=== PATIENT | female | born 1975 | race Caucasian/White ===

== ENCOUNTER 2025-08-01 16:39 | Emergency (ER) | payer MEDICARE, SELFPAY ==
--- OUTSIDE RECORDS SUMMARY | 2024-07-21 04:03 | XMS_ITS | Continuity of Care Document ---
Author Organization [facility] Address [address] [place] [address] Phone Care Team Providers Care Money Counter Name Role Phone Gifty Sharma MD, Robles Avilez Unavailab le Allergies, Adverse Reactions, Alerts Substance Reaction Status Criticality latex Active No Information codeine Active No Information mercaptopurine Active No Informatio n infliximab Active No Information Medications Medication Instructions Dosage Effective Dates (start - stop) Status Comments Xeljanz XR 11 mg tablet,extended release take 1 tablet by oral route every day 11 MG - Active metoprolol succinate ER 50 mg tablet,extended release 24 hr take 1 tablet by oral route every day 50 MG - Active Synthroid 25 mcg tablet take 1 tablet by oral route every day 25 MCG - Active prednisone 10 mg tablet take 1 tablet by oral route every day 10 MG - Active budesonide DR-ER 9 mg tablet,delayed and extended release take 1 tablet by oral route every day in the morning swallowing whole with water. Do not break, crush, dissolve and/or chew. 9 MG - Active Xanax 0.25 mg tablet take 1 tablet by or al route 3 times every day 0.25 MG - Active levalbuterol HFA 45 mcg/actuation aerosol inhaler inhale 2 puff by inhalation route every 6 hours 90 MCG - Active Procedures Procedure Date RADEX KNChitra COMPL 4/MORE VIEWS OFFICE/OUTPATIENT VISIT NEW Advance Directives Directive Yes / No Effective Date File Name No Information Encounters Encounter Description Practice Location Reason(s) For Visit Diagnoses Date Provider Providers Copied on Encounter [facility], [address], [place], [address], [place] tel:[phone] [facility] No Information 4 Gifty Arboleda. [address], [place], [address], [place]. tel: [phone] OFFICE/OUTPA TIENT VISIT NEW [facility], [address], [place], [address], [place] tel:[phone] [facility] Pain, joint, knee, rightPatellofemor al pain syndrome of right kneeBody mass index [BMI] 45.0-49.9, adult Jul- 4 Gifty Arboleda. [address], [place], [address], [place]. tel: [phone] Referring Provider: Ellie Trinh [address] , [place], [address]. tel:[phone] Family History Family Member Type Diagnosis Age At Onset No Information Payers Payer name Insurance type Covered alliance party ID Helena hernandez(s) Medicare E2 [id number] Social History Type Description Quantity Date Captured Comments Alcohol Use Details Unknown Caffeine Use Details Unknown Tobacco Use Status No Information Smoking Status No Information Sex Female Chief Complaint And Reason For Visit No Information Reason For Referral Reason For Referral No Information Plan Of Treatment Date Type Action Status Referral Ordered: RADEX KNE 3 VIEWS RT knee ordered Referral Ordered: RADEX KNE COMPL 4/MORE VIEWS RT ordered History Of Present Illness Encounter Date Complaint History Of Prese nt Illness No Information Functional Status Date Functional Assessmen t No Information Instructions Date Instruction Additional Infor mation Giving encouragement to exercise Related to Body mass index [BMI] 45.0-49.9, adult Assessments Type Assessment Date No Information Patient Care Teams Name Effective Dates (start - stop) Status Members No Information
--- OUTSIDE RECORDS SUMMARY | 2024-07-21 04:03 | XMS_ITS | Continuity of Care Document ---
Author Organization [facility] Address [address] [place] [address] Phone Care Team Providers Care Photocomposing Machine Operator Name Role Phone Gifty Sharma MD, Robles [...] Providers Copied on Encounter [facility], [address], [place], [address], [place] tel:[phone] [facility] No Information 4 Gifty Arboleda. [address], [place], [address], [place]. tel: [phone] OFFICE/OUTPA TIENT VISIT NEW [facility], [address], [place], [address], [place] tel:[phone] [facility] Pain, joint, knee, rightPatellofemor al pain syndrome of right kneeBody mass index [BMI] 45.0-49.9, adult Jul- 4 Gifty Arboleda. [address], [place], [address], [place]. tel: [phone] Referring Provider: Ellie Trinh [address] , [place], [address]. tel:[phone] Family History Family Member Type Diagnosis Age At Onset No Information Payers Payer name Insurance type Covered democrat ID Helena hernandez(s) Medicare E2 [id number] Social History Type Description Quantity Date Captured [...]
--- NOTE | ~2025-08-01 | XR_ITS ---
EXAMINATION: XR chest 2V, 08/01/2025 17:08 [employer] HISTORY: cp COMPARISON: No comparisons available. Technique: 2 views obtained. Findings: The lungs are clear, no effusion. No pneumothorax. Heart is normal size. Mediastinal and hilar contours are within normal limits. Bony thorax no acute abnormality. Impression: No acute cardiopulmonary abnormality. Reviewed, dictated and finalized at location P. R OPERATOR [employer] Impression: No acute cardiopulmonary abnormality.
--- NOTE | 2025-08-01 16:41 | ECG_ITS ---
Test Date: 2025-08-01 17:06:20 Measurements Intervals Sebastian Rate: 71 P: 34 IN: 142 QRS: 11 QRSD: 111 T: 39 QT: 381 QTc: 415 Interpretive Statements SINUS RHYTHM WITH SINUS ARRHYTHMIA POSSIBLE LEFT ATRIAL ENLARGEMENT INCOMPLETE RIGHT BUNDLE BRANCH BLOCK BASELINE ARTIFACT- I, III BORDERLINE ECG No previous ECG available for comparison Electronically Signed On 08-01-2025 20:52:32 MANAGER CONTINUOUS IMPROVEMENT by Osmany Rojas D.O.
[2025-08-01 16:50] VITALS: BP 143/79; PULSE 73; RESP 16; TEMP 37; O2SAT 96
[2025-08-01 17:03] VITALS: BP 125/79; PULSE 80; RESP 15; O2SAT 100
[2025-08-01] MEDS: ASPIRIN 81 MG CHEWABLE TABLET 324 MG PO (17:11)
[2025-08-01 17:32] LABS: Hematocrit 38.0 % (37.0-47.0); Hemoglobin 12.7 g/dL (12.0-15.0); Immature Granulocyte Percent A 2.0 % (0-0.5); Lymphocytes Absolute Auto 1.60 K/mm3 (0.9-3.2); Mean Corpuscular HGB Conc 33.4 g/dl (32-36); Mean Corpuscular Hemoglobin 29.1 pg (26-34); Mean Corpuscular Volume 87.0 fl (80-100); Nucleated Red Blood Cells Absolute Auto 0.000 K/mm3 (0.0-0.012); Nucleated Red Blood Cells Perc 0.0 % (0.0-0.2); Platelet Count Result 396 k/mm3 (150-375); Red Blood Count 4.37 M/mm3 (4.2-5.4); White Blood Count 7.7 K/mm3 (4.5-10.0)
[2025-08-01 17:44] LABS: INR 1.0; Prothrombin Time 13.1 Seconds (11.1-14.7)
[2025-08-01 17:45] VITALS: PULSE 73
[2025-08-01 17:45] LABS: Partial Thromboplastin Time 26.8 Seconds (22.3-36.8)
[2025-08-01 17:49] LABS: Alanine Aminotransferase 22 U/L (6-35); Albumin Level 4.7 g/dL (3.5-5.1); Alkaline Phosphatase 90 U/L (38-126); Anion Gap 8 mmol/L (4-12); Aspartate Amino Transferase 37 U/L (14-36); Bilirubin,Total 0.5 mg/dL (0.2-1.3); Blood Urea Nitrogen 14 mg/dL (7-17); Calcium 9.9 mg/dL (8.4-10.2); Carbon Dioxide 27 mmol/L (22-30); Chloride 103 mmol/L (98-107); Estimated CRCL calculation 67 ml/min; Estimated Glomerular Filt Rate > 60; Glucose 92 mg/dL (65-110); Lipase 52 U/L (23-300); Potassium 4.0 mmol/L (3.4-5.0); Sodium 138 mmol/L (137-145); Total Protein 8.4 g/dL (6.3-8.2)
[2025-08-01 17:56] LABS: Troponin I < 0.012 ng/mL (0.000-0.034)
--- OUTSIDE RECORDS SUMMARY | 2025-08-01 18:11 | XMS_ITS | Clinical Summary ---
Author Organization [facility] C Address [address] [place] [address] Care Team Providers Care Floor Plan Adjuster Name Role Phone Craig Ugalde MD Unavailable [phone] Tristen Lim DO Primary Care Provider Allergies Active Allergy Reactions Criticality Noted Date Comments Azathioprine Vomiting,Nausea only,Nausea And Vomiting Low 05/19/2014 Codeine Dizziness Low Hydrocodone-Acetaminoph en Rash Medium 05/19/2014 Latex Rash Medium Metformin Diarrhea Low 11/07/2014 Nsaids (Non-Steroidal Anti-Inflammatory Drug) Other (See comments) Low 05/19/2014 Contraindicated due to Crohn's disease Medications acetaminophen (TYLENOL EXTRA STRENGTH) 500 mg tablet take 2 tablet by oral route every 6 hours as needed 0 0 06/23/20 16 Active Additional Information Patient taking differently:500 mgAs needed, Reported on 08/02/2024 diphenhydrAMINE (BENADRYL ALLERGY) 25 mg tablet take 1 tablet by oral route every 4 - 6 hours as needed 0 0 01/10/20 17 Active Additional Information Patient taking differently:25 mgNightly PRN, Reported on 08/02/2024 multivitamin with minerals tablet Take by mouth. Active Lacto.acidophilus- Bif.animalis 5 billion cell capsule, sprinkle Take 1 capsule by mouth. Active VOLTAREN 1 % gel APPLY 2 GRAMS TO AFFECTED AREA NEEDED 2 02/04/20 18 Active EPINEPHrine 0.3 mg/0.3 mL auto-injection syringeIndications :Anaphylaxis 0.3 mL (0.3 mg total) 02/02/20 18 Active levalbuterol (XOPENEX HFA) 45 mcg/actuation inhaler Inhale 1-2 puffs every 4 (four) hours as needed Active hydrocortisone (CORTENEMA) 100 mg/60 mL enemaIndications:U lcerative Colitis Insert 1 enema (100 mg total) into the rectum nightly Use as directed 1800 mL 1 01/28/20 22 Active Additional Information Patient not taking.Reported on 04/19/2025 tofacitinib (Xeljanz) 10 mg tabletIndications: Ulcerative (chronic) pancolitis without complications (HCC) Take 1 tablet (10 mg total) by mouth 2 (two) times a day 60 tablet 3 11/01/19 23 Active Additional Information Patient not taking.Reported on 04/19/2025 sulfaSALAzine (AZULFIDINE) 500 mg tablet Take 2 tablets (1,000 mg total) by mouth 2 (two) times a day 11/27/19 23 Active mesalamine (ROWASA) 4 gram/60 mL enema Insert 60 mL (4 g total) into the rectum nightly 11/27/19 23 Active ciprofloxacin (CIPRO) 500 mg tablet Take 1 tablet (500 mg total) by mouth 2 (two) times a day 14 tablet 09/11/19 24 Active Additional Information Patient not taking.Reported on 08/02/2024 traMADoL (ULTRAM) 50 mg tablet Take 1 tablet (50 mg total) by mouth every 6 (six) hours as needed for pain 24 tablet 12/30/19 24 Active Additional Information Patient not taking.Reported on 04/19/2025 cyclobenzaprine (FLEXERIL) 10 mg tablet Take 1 tablet (10 mg total) by mouth 3 (three) times a day as needed for muscle spasms 30 tablet 12/30/19 24 Active levothyroxine (SYNTHROID) 25 mcg tablet TAKE 1 TABLET BY MOUTH EVERY DAY 90 tablet 2 03/30/20 24 Active semaglutide (Wegovy) 0.25 mg/0.5 mL auto-injectorIndic ations:Fatty liver,HLA B27 (HLA B27 positive),Morbid obesity with BMI of 45.0-49.9, adult (HCC) Inject 0.5 mL (0.25 mg total) under the skin every 7 days 2 mL 5 04/25/20 24 Active Additional Information Patient not taking.Reported on 04/19/2025 fluticasone propionate (FLONASE) 50 mcg/actuation nasal spray INHALE 2 PUFFS IN EACH NOSTRIL DAILY 48 mL 2 05/30/20 24 Active Additional Information Patient not taking.Reported on 04/19/2025 metoprolol XL (TOPROL-XL) 50 mg extended release tablet TAKE 1 TABLET BY MOUTH TWICE A DAY 180 tablet 2 06/06/20 24 Active valACYclovir (VALTREX) 1 gram tablet Take 1 tablet (1,000 mg total) by mouth 3 (three) times a day 21 tablet 2 06/30/20 24 Active ondansetron ODT (ZOFRAN-ODT) 4 mg disintegrating tablet Take 1 tablet (4 mg total) by mouth every 8 (eight) hours as needed for nausea or vomiting 20 tablet 2 06/30/20 24 Active Additional Information Patient not taking.Reported on 04/19/2025 triamterene-hydroC HLOROthiazide 37.5-25 mg per tablet/capsule Take 1 tablet/capsule by mouth daily 90 tablet 3 08/30/19 25 026 Active Additional Information Patient not taking.Reported on 04/19/2025 ALPRAZolam (XANAX) 0.5 mg tabletIndications: Insomnia, unspecified type Take 1 tablet (0.5 mg total) by mouth nightly as needed for anxiety 30 tablet 12/06/19 25 Active Additional Information Patient not taking.Reported on 04/19/2025 FLUoxetine (PROzac) 20 mg capsule TAKE 1 CAPSULE BY MOUTH EVERY DAY 30 capsule 02/21/20 25 Active Additional Information Patient not taking.Reported on 04/19/2025 Rinvoq 30 mg extended release tablet Take 1 tablet (30 mg total) by mouth daily 03/02/20 25 Active hydrOXYzine (ATARAX) 25 mg tablet TAKE 1 TABLET (25 MG) BY MOUTH NIGHTLY NEEDED FOR ANXIETY OR INSOMNIA. 02/25/20 25 Active Active Problems Problem Noted Date Diagnosed Date Acute cystitis with hematuria 01/03/2023 Assessment & Plan (01/03/2023 7:56 PM CDT): UA with small blood, trace LE, positive nitrates. Urine culture pending Hx recurrent UTIs, nephrolithiasis Immunocompromised history Urine culture pending. Yeast pending Omnicef 300 mg BID x 10 days Go to the ER [facility] if you develop worsening symptoms, fever, worsening nausea, vomiting, abominal pain, flank ain, groin pain, worsening blood in urine -Take all antibiotic medications as prescribed. -We will notify you of urine culture results -Push sugar-free fluids, especially water. This also helps prevent future infections. -Urinate when you feel the urge. Do not hold your urine. Urinate as soon as you feel you have to. -Make sure to always wipe from front to back after urinating. -If you are sexually active make sure to urinate Before AND after sex to help prevent bladder infections. -Avoid intercourse until your symptoms are resolved for one week. -Do not drink alcohol, caffeine, and citrus juices. These can irritate your bladder and increase your symptoms. Seek care (go to Urgent Care or ER) immediately if: You are urinating very little or not at all. You are vomiting. You have a high fever with shaking chills. You have side or back pain that gets worse. Contact your primary care doctor or MAJOR ACCOUNT REPRESENTATIVE if: You have a fever. You have white or yellow discharge from your vagina. You do not feel better after 2 days of taking antibiotics. Tachycardia, paroxysmal 07/11/2021 Assessment & Plan (07/11/2021 1:26 PM MEDICAL SUPERVISOR): No evidence of pulmonary embolism by CT with PE protocol. Currently being evaluated and has upcoming nuclear stress test. Precordial pain 04/24/2021 Other hyperlipidemia 04/24/2021 Chronic ulcerative pancolitis, unspecified compl ication 02/01/2020 Overview (02/01/2020): Added automatically from request for surgery [id number] Assessment & Plan (12/24/2020 12:33 PM CDT): Continue Xeljanz 10 mg b.i.d. or alternatively the 22 mg once daily. She had very difficult to treat colitis which had been refractory to anti TNF medication, Entyvio, Simponi, and previously some oral steroids which she is no longer on. Continue the Xeljanz. If necessary, Stelara will be another option Immunosuppression due to drug therapy 09/28/2019 HLA B27 (HLA B27 positive) 02/01/2019 Overview (02/01/2019): HLA-B27 positive possible ankylosing spondylitis a; Comments: BKA 06/29/2016 - Dysuria 10/05/2018 Assessment & Plan (10/05/2018 4:43 PM MEDICAL SUPERVISOR): Check urinalysis and culture today. This may be altered by her recent use of azo and she may need to follow up with her primary physician. Ulcerative chronic pancolitis with rectal bleedi ng 01/04/2018 Overview (01/04/2018): Added automatically from request for surgery [id number] Assessment & Plan (07/11/2021 1:25 PM MEDICAL SUPERVISOR): Doing well at this time on Xeljanz 10 mg b.i.d.. The patient could take 22 mg once daily. She had very difficult to treat colitis which had been refractory to anti TNF medication, Entyvio, Simponi, and is currently able be off of oral steroids. If there is a problem Stelara would be the next option. GERD without esophagitis 06/23/2017 Assessment & Plan (08/21/2022 12:55 PM MEDICAL SUPERVISOR): Chronic GERD for over 10 years, currently stable on pantoprazole. -continue PPI daily -RECOMMENDATIONS given include: anti-reflux maneuvers, Avoid acidic foods like oranges and tomatoes., avoidance of spicy foods, avoid eating 3-4 hours before bed, elevation of the head of the bed, and weight loss -schedule EGD -The risks (risks of bleeding, infection, perforation requiring surgery, missed polyps/cancer, dental injury, aspiration pneumonia, anesthesia complications such as drug reaction and cardiopulmonary complications including rare chance of ), benefits, and alternatives of the planned procedure were explained to the patient who understands and consents to having procedure done. Assessment & Plan (07/11/2021 1:25 PM MEDICAL SUPERVISOR): Stable on pantoprazole Assessment & Plan (12/24/2020 12:34 PM CDT): Stable on pantoprazole. Assessment & Plan (06/23/2017 3:20 PM MEDICAL SUPERVISOR): Patient is having increased reflux symptoms recently will place her back on pantoprazole 40 mg daily perform upper endoscopy at the time of her colonoscopy. 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 Patient has been through the multiple medications as mentioned above. She has done relatively well Xeljanz 10 mg b.i.d.. She was warned about possibility of DVT. She is to continue on Xeljanz. She has some mild left- sided abdominal pain. I recommend fecal calprotectin level. If elevated then pursue further or may treat with oral budesonide. May possibly need flexible sigmoidoscopy if the fecal calprotectin remains elevated and left-sided pain persists see me again in 4 months otherwise. Assessment & Plan (02/27/2018 1:15 PM CDT): Although her colonoscopy showed marked improvement in her bowel symptoms are somewhat improved, she still is on low-dose prednisone and we need to progress to get her off of steroids. Current treatment includes Simponi, hydrocortisone enema every other day, oral budesonide 9 mg daily, prednisone 10 mg, and methotrexate 25 mg weekly. She had previous intolerance or ineffectiveness of other medications that were listed. I recommend taper prednisone down to 7.5 mg daily. I also recommend trial of using Xeljanz which has indication for ulcerative colitis as well as arthritis. We will then stop her Simponi once Xeljanz gets approved. Will continue to taper down oral prednisone and then taper down the cortisone enemas. Assessment & Plan (01/04/2018 12:49 PM CDT): Currently on Simponi, hydrocortisone enema, oral budesonide, and prednisone 15 mg. As well as methotrexate. She has previous intolerance is or ineffectiveness of other medications that are listed. Recommend complete colonoscopy at this time she is currently steroid dependent. She may need alteration her medications which showed a may be to a drug of a different class. Will compare to how she was in August this year with the severe left-sided colitis. She is to taper her prednisone down to 10 mg prior to the time of colonoscopy. Assessment & Plan (06/23/2017 3:20 PM MEDICAL SUPERVISOR): The patient is doing the best she has for several months now. It is time to perform colonoscopy to stage whether her current biologic therapy is effective. This includes Simponi, weekly methotrexate, oral budesonide, we also discussed the possibility of colectomy if needed. Will perform complete colonoscopy along with upper endoscopy. Assessment & Plan (04/01/2017 12:22 AM CDT): The disease is somewhat more like ulcerative colitis with a significant left- sided predominance of severity. She has improved significantly over recent months and seems to be responding to Simponi. I recommend continuing oral budesonide 9 mg daily. Continue the methotrexate which would also cover aspects of this presentation that may be more Crohn's like. I recommend that we taper the hydrocortisone enemas off by he tapering to every other night for 2 weeks followed by every 3rd night for 2 weeks followed by once weekly for 2 weeks and then off. She will still have some steroid on board in the form of oral budesonide, but not the systemic side effects of prednisone or hydrocortisone. I will see her again in 3 months. Left sided ulcerative colitis 10/19/2014 Assessment & Plan (08/21/2022 12:58 PM MEDICAL SUPERVISOR): Patient has ulcerative colitis diagnosed approximately 2005. Initially had pancolitis, most recent colonoscopy in [address] Nirmal Lerner with mild left-sided colitis and pseudopolyps. Patient also had a history of pyoderma gangrenosum with intermittent episodes of uveitis and a positive HLA B27 arthropathy. Patient has failed remicade, humira, entyvio, and Simponi. She has most recently been on Xeljanz with good control. -continue Xeljanz -we will order labs and fecal calprotectin -schedule colonoscopy -The risks (risks of bleeding, infection, perforation requiring surgery, missed polyps/cancer, dental injury, aspiration pneumonia, anesthesia complications such as drug reaction and cardiopulmonary complications including rare chance of ), benefits, and alternatives of the planned procedure were explained to the patient who understands and consents to having procedure done. -The patient is noted to be initiating or already taking Xeljanz and the patient was counseled on the increased risk of developing series infection that may lead hospitalization or . These infections include but are not limited to tuberculosis and invasive fungal infections as well as bacterial and viral infections. The patient was also counseled on potential malignancies, such as lymphoma or skin cancer, that can be aggressive and fatal. Assessment & Plan (02/01/2019 1:03 AM CDT): The patient has primarily left-sided disease but microscopically had medina colitis. The left-sided abdominal pain often pre dates a flare-up. The patient is having some change in her bowel movements at this time. She has done overall extremely well on Xeljanz. I recommend continuing Xeljanz. For now I will add a course of budesonide 9 mg daily . She is to follow up with me in 6-8 weeks would see if we can start tapering the budesonide at that time. Will also check a fecal calprotectin. Assessment & Plan (10/05/2018 4:42 PM MEDICAL SUPERVISOR): Patient microscopically has had a medina colitis but has predominantly had left- sided disease. She is in complete clinical remission on Xeljanz. Routine blood testing will be performed today. I will see her again in 4 months for follow-up. Ulcerative colitis 10/18/2014 Assessment & Plan (12/02/2021 2:16 PM CDT): Fairly stable on Xeljanz 10 mg b.i.d.. Continue this. She did not tolerate weaning down to 5 mg b.i.d.. Follow-up again in 4 months. If she needs anticoagulation for any cardiac ablation type procedure this is okay to do. Assessment & Plan (06/10/2020 12:53 PM CDT): Doing quite well on Xeljanz 10 mg b.i.d.. She has a mesalamine intolerance. Previous treatments included Humira, Entyvio, Simponi, budesonide, and oral steroids. Bowel movements are normal now. She has a primarily left-sided colitis but microscopically had a medina colitis in the past. She has had shingles in the past and was advised to get her shingles vaccine. She also was warned about possibility of DVT. Assessment & Plan (11/28/2019 1:36 PM CDT): Has primarily left-sided disease. Last colonoscopy January 2018 with some pseudo polyp formation of left-sided disease and mild proctitis. She is clinically had a good response to Xeljanz better than any other medication. Continue this. I would like blood work and a fecal calprotectin level prior to next visit. See me again in 4 months. Immunizations Immunization Administration Dates Next Due Influenza, Quadrivalent, Rec ombinant, Egg Free, Preservative Free, Intramuscular 04/29/2018 Influenza, Quadrivalent, Spl it, Preservative Free, Intramuscular 05/03/2019,05/31/2015,05/19/2014 Influenza, Trivalent, Cell Culture-based MDCK, Preservative Free, Antibiotic Free, Intramuscular 07/03/2017 Influenza, Unspecified 07/31/2023(Deferr ed: Patient Refused),08/08/2022(Deferred: Patient Refused),08/03/2021(Deferred: Patient Refused),07/03/2017,05/19/2014 Pneumococcal Conjugate PCV 13 12/02/2017 Pneumococcal Conjugate, Unspecified 08/17/2011 Pneumococcal Polysaccharide PPV23 08/17/2011 Tdap 07/25/2012,08/17/2011 Surgical History Surgery Date Site/Laterality Comments TONSILLECTOMY 08/17/2011 - 08/16/2012 SECTION 08/17/1997 - 08/16/1998 COLONOSCOPY 10/11/2014 Colitis continuous from rectum into transverse colon w/ more normal appearing mucosa in the proximal transverse colon. the rectum and the sigmoid had deep serpiginous ulcerations. COLONOSCOPY 10/05/2014 rotruding internal hemorrhoids were noted on retroflexion UPPER GASTROINTESTINAL ENDOSCOPY 10/05/2014 Minimal gastritis otherwise Normal COLONOSCOPY 09/29/2015 Severe left-sided colitis and polyps FLEXIBLE SIGMOIDOSCOPY 09/03/2017 Chronic active colitis, severe SKIN CANCER EXCISION 12/21/2017 basal cell cancer COLONOSCOPY 01/20/2018 3 mm adenomatous polyp in ascending colon, chronic, active, colitis insigmoid and descending colon with pseudopolyp formation, mild proctitis in rectum COLONOSCOPY 02/14/2020 Chronic inflammation, minimal, Features consistent with pseudopolyps, Focal mild lamina propria fibrosis, Negative for dysplasia or malignancy Medical History Medical History Date Comments Pancolitis Uveitis Pyoderma gangrenosum (HCC) 2010 Ulcerative colitis [employer] te sting with pattern of ulcerative coli; Comments: KRISTI 06/29/2016 - HLA B27 (HLA B27 positive) HLA-B 27 positive possible ankylosing spondylitis a; Comments: KRISTI 06/29/2016 - Anemia Chronic constipation Chronic diarrhea GERD (gastroesophageal reflux disease) Pancreatitis Hypertension Kidney stone history Urinary tract infection Arthritis Skin cancer PONV (postoperative nausea and vomiting) Small airways disease Tachycardia history==takes m etoprolol for this Family History Medical History Relation Name Comments No Known Problems Brother No Known Problems Father No Known Problems Mother No Known Problems Sister Relation Name Status Comments Brother Father Mother Sister Social History Tobacco Use Types Packs/Day Years Used Date Smoking Tobacco: Never Smokeless Tobacco: Never Tobacco Cessation:Counseling Given: Not Answered Alcohol Use Standard Drinks/Week Comments Yes 0 (1 standard drink = 0.6 oz pur e alcohol) rare AUDIT-C Answer Date Recorded Q1: How often do you have a drink containing alcohol? Never 02/27/2023 Q2: How many drinks containi ng alcohol do you have on a typical day when you are drinking? Patient does not drink Q3: How often do you have si x or more drinks on one occasion? Never 02/27/2023 PHQ-2 Answer Date Recorded PHQ-2 Total Score 0 02/25/2024 Comments No Sex and Gender Information Value Date Recorded Sex Assigned at Not on file Legal Sex Female 4:16 AM MEDICAL SUPERVISOR Gender Identity Female 08/01/2021 9:01 AM MEDICAL SUPERVISOR Sexual Orientation Straight 08/01/2021 9: 01 AM MEDICAL SUPERVISOR Last Filed Vital Signs Vital Sign Reading Time Taken Comments Blood Pressure 108/72 02/25/2024 1:54 PM CDT Pulse 77 02/25/2024 1:54 PM CDT Temperature 36.4 C (97.6 F) 02/25/2024 1:54 PM CDT Respiratory Rate 18 02/25/2024 1:54 PM CDT Oxygen Saturation 96% 02/25/2024 1:54 PM CDT Inhaled Oxygen Concentration - - Weight 126.6 kg (279 lb) 04/19/2025 11:15 AM CDT Height 157.5 cm (5' 2) 04/19/2025 11:15 AM CDT Body Mass Index 51.03 04/19/2025 11:15 AM CDT Plan of Treatment Health Maintenance Due Date Last Done Comments Cervical Cancer Screening 1975 Hepatitis C Screening 1975 Hepatitis B Screening 1991 Regular Well Visit/Exam 18-64 1991 Zoster Vaccine (1 of 2) 1992 Colon Cancer Screening-Colonoscopy 02/13/2022 02/14/2020, 02/14/2020, 01/20/2018, Additional history exists Breast Cancer Screening-Mammogram 07/04/2022 021, 02/06/2015 DTaP/Tdap/Td Vaccine (3 - Td or Tdap) 07/25/2022 07/25/2012, 08/17/2011 Pneumococcal vaccine <65 (3 of 3 - PCV20 or PCV21) 12/02/2022 12/02/2017, 08/17/2011, 08/17/2011 Depression Screening 02/24/2025 02/25/2024, 02/28/20 23 Covid-19 Vaccine ( - 2024-2 6 season) 2025 07/30/2021, 10/22/2020 Influenza Vaccine (#1) 2025 9, 04/29/2018, 07/03/2017, Additional history exists Procedures Procedure Name Priority Date/Time Associated Diagnosis Comments SCREENING MAMMOGRAM BILATERAL W DEB Schedule Routine, Read Routine (OP Routine) 07/04/2021 3:29 PM MEDICAL SUPERVISOR Screening mammogram, encounter for COLONOSCOPY 02/14/2020 6:55 AM CDT from Last 3 Months or Most Recently Relevant to Health Maintenance Results * Screening Mammogram Bilateral W Deb (07/04/2021 3:29 PM MEDICAL SUPERVISOR) Anatomical Region Laterality Modality Breast Bilateral Mammography Narrative 07/16/2021 3:21 PM MEDICAL SUPERVISOR Screening Mammogram Bilateral W Deb: 07/04/21 Clinical: Screening mammogram, encounter for. Prior Study Comparisons: Comparison was made to the prior available relevant studies at the time of interpretation. Findings: Bilateral No significant masses, malignant type calcifications, skin thickening, nipple retraction, or significant lymphadenopathy is noted in either breast. The CAD review showed no significant findings. The breasts have scattered areas of fibroglandular density. The patient will be notified of results by letter. Impression: BI-RADS ATLAS category (overall): 2 - Benign There is no mammographic evidence of malignancy. Routine Screening Mammogram in 1 Yr is recommended for bilateral Overall Assessment: 2 - Benign us Self Screening Mammogram IMG MAMMO PROCEDURES Fi nal Result * COLONOSCOPY (02/14/2020 6:55 AM CDT) Anatomical Region Laterality Modality Other Narrative Procedure Note Shad Lerner MD - 02/14/2020 6:55 AM CDT ENDOSCOPY LAB Patient Name: Nae Ramirez Procedure Date: 02/14/2020 6:55 AM Admit Type: Outpatient Room: [facility] Date of : 1975 Instrument Name: -[id number] Gender: Female Note Status: Finalized Procedure: Colonoscopy Indications: High risk colon cancer surveillance: Ulcerativepancolitis of 8 (or more) years duration, , Last colonoscopy: January 2018 , spondyloarthropathy, predominantly left sided colitis. Currently on oral xeljanz and in clinical remission but has chronic left sided abdominal pain.Has hx of paradoxical worsening of colitis with oral mesalamine. Providers: Shad Lerner M.D. Referring MD: Charla Riley, Medicines: Propofol per Anesthesia Complications: No immediate complications. Estimated Blood Loss: Estimated blood loss was minimal. Procedure: Pre-Anesthesia Assessment: - The risks and benefits of the procedure and thesedation options and risks were discussed with the patient. All questions were answered and informed consent wasobtained. The benefits, risks and alternatives of the procedureand sedation were discussed and informed consent wasobtained. All questions were answered. Please refer to the signed informed consent document in the medical record. Thescope was passed under direct vision. The Colonoscope was introduced through the anus and advanced to the the terminal ileum, with identification of the appendiceal orifice and IC valve. The colonoscopy was performed without difficulty. The patient tolerated the procedure well. The quality of the bowel preparation was good.The quality of the bowel preparation was evaluated usingthe BBPS ([place] Bowel Preparation Scale) with scores of: Right Colon = 3 (entire mucosa seen well with noresidual staining, small fragments of stool or opaque liquid), Transverse Colon = 3 (entire mucosa seen well with no residual staining, small fragments of stool or opaque liquid) and Left Colon = 3 (entire mucosa seen wellwith no residual staining, small fragments of stool oropaque liquid). The total BBPS score equals 9. The quality ofthe bowel preparation was excellent. The bowel preparation used was polyethylene glycol (PEG). Bowel prep was administered using a split dose. Findings: Scattered pseudopolyps were found in the sigmoid colon and in the descending colon. Biopsies were taken with a cold forceps forhistology. The terminal ileum appeared normal. The transverse colon and ascending colon appeared normal. Biopsieswere taken with a cold forceps for histology. Mild inflammation characterized by loss of vascularity, pseudopolypsand scarring was found in the descending colon. Biopsies were taken witha cold forceps for histology. Mild inflammation characterized by loss of vascularity, pseudopolypsand scarring was found in the sigmoid colon. Biopsies were taken with acold forceps for histology. The mucosa vascular pattern in the rectum was decreased. This was biopsied with a cold forceps for histology. The exam was otherwise without abnormality on direct and retroflexion views. Impression: - Pseudopolyps in the sigmoid colon and in thedescending colon. Biopsied. Signicifcant number of pseudopolypsand scarring from prior inflammation. This is in the regionof the patients left sided pain. - The examined portion of the ileum was normal. - The transverse colon and ascending colon are normal. Biopsied. - Mild chronic inflammation was found in the descending colon secondary to ulcerative colitis. Biopsied. - Mild chronic inflammation was found in the sigmoidcolon secondary to ulcerative colitis. Biopsied. - Decreased mucosa vascular pattern in the rectum. Biopsied. - The examination was otherwise normal on direct and retroflexion views. Surveillance biospies obtained throughout. Recommendation: - Await pathology results. - Continue present medications. - Repeat colonoscopy in 2 years for surveillance. Attending Participation: I personally performed the entire procedure. Electronically signed by Shad Lerner MD Shad Lerner M.D. 02/14/2020 8:34:25 AM This document was signed electronically. Number of Addenda: 0 Note Initiated On: 02/14/2020 6:55 AM Scope In: Scope Out: Shad Lrener MD ENDOSCOPY PROCEDURES Final Result from Last 3 Months or Most Recently Relevant to Health Maintenance Insurance MEDICARE [facility] Address: [address] [address] [place] [address] [facility] MEDICARE [place] [facility] MEDICARE MEDICAID [place] SPENDDOWN Advance Directives For more information, please contact: [phone] * Full Code (Latest Code Status on File) Date Activated Date Inactivated Comments 02/14/2020 7:08 AM 02/14/2020 1:12 PM * Full Code Date Activated Date Inactivated Comments 01/20/2018 12:20 PM 01/20/2018 4:15 PM Care Teams Floor Plan Adjuster Relationship Specialty Start Date End Date Tristen Lim DO [address] [facility] [address] [place] [address] PCP - General Internal Medicine 04/13/25 Craig Ugalde MD Consulting Physician Cardiology 06/25/21
--- OUTSIDE RECORDS SUMMARY | 2025-08-01 18:11 | XMS_ITS | Encounter Summary ---
Author Organization [facility] Address [address] [facility] [place] [address] Care Team Providers Care Career Resource Specialist Name Role Phone Eric Smith MD Unavailable Chemo Bennett MD Unavailable [phone] Shad Lerner MD Unavailable [phone] Charla Christopher DO Primary Care Provider [phone] Charla Christopher DO Unavailable [phone] Bria Nelson RUG SAMPLE BEVELER-SUPPLY AIDE Unavailable [phone] Charla Christopher DO Unavailable [phone] Bria Nelson RUG SAMPLE BEVELER-SUPPLY AIDE Unavailable [phone] Charla Christopher DO Unavailable [phone] James Delcid MD Unavailable Unavailab Willa Nice RUG SAMPLE BEVELER-SUPPLY AIDE Unavailable [phone] Willa Dorman RUG SAMPLE BEVELER-SUPPLY AIDE Unavailable [phone] Charla Christopher DO Unavailable [phone] Emperatriz Garvey RUG SAMPLE BEVELER-SUPPLY AIDE Unavailable [phone] Encounter Details Date Type Department Care Team (Late st Contact Info) Description 12/31/2016 [facility] [address] [place] [address] Eric Smith MD [address] [place] [address] Social History Tobacco Use Types Packs/Day Years Used Date Smoking Tobacco: Never Smokeless Tobacco: Never Alcohol Use Standard Drinks/Week Comments Yes 0 (1 standard drink = 0.6 oz pur e alcohol) rarely Comments No Sex and Gender Information Value Date Recorded Sex Assigned at Female 03/05/2021 9:48 AM CDT 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 Answer Date of Assessment Author No 11/16/2014 1:46 AM Lory Davenport RN * Is person blind or have serious difficulty seeing? Answer Date of Assessment Author No 11/16/2014 1:46 AM Lory Davenport RN * Does person have serious difficulty walking/climbing stairs? Answer Date of Assessment Author No 11/16/2014 1:46 AM Lory Davenport RN * Does person have difficulty dressing/bathing? Answer Date of Assessment Author No 11/16/2014 1:46 AM Lory Davenport RN * Does person have difficulty doing errands alone? Answer Date of Assessment Author No 11/16/2014 1:46 AM Lory Davenport RN documented as of this encounter Mental Status * Does person have difficulty concentrating/remembering/making decisions? Answer Entry Date Author No 11/16/2014 1:46 AM Lory Davenport RN documented in this encounter Plan of Treatment Not on file documented as of this encounter Visit Diagnoses Not on filedocumented in this encounter Additional Health Concerns Infection Onset Date Last Indicated Resolved Time COVID-19 Under Investigation 08/27/2020 08/27/2020 08/27/2020 4:24 PM SHOPPING CENTRE MANAGER COVID-19 Under Investigation 10/10/2021 10/10/2021 10/10/2021 8:54 PM SHOPPING CENTRE MANAGER documented as of this encounter Care Teams Career Resource Specialist Relationship Specialty Start Date End Date Charla Christopher, DO [address] [place] [id number] PCP - General Family Medicine 08/12/16 10/25/24 Charla Christopher, DO [address] [place] [phone] PCP - Attributed-MSSP 08/19/18 01/14/21 Bria Nelson, RUG SAMPLE BEVELER-SUPPLY AIDE [address] [place] [id number] PCP - Attributed-MSSP 01/15/21 03/16/21 Charla Christopher, DO [address] [place] [phone] PCP - Attributed-MSSP 03/17/21 04/16/21 Bria Nelson, RUG SAMPLE BEVELER-SUPPLY AIDE [address] [place] [address] PCP - Attributed-MSSP 04/17/21 10/14/21 Charla Christopher, DO [address] [place] [phone] PCP - Attributed-MSSP 10/15/21 01/01/23 James Delcid MD Provider PCP - Attributed-MSSP 02/22/17 03/17/17 Willa Dorman, RUG SAMPLE BEVELER-SUPPLY AIDE [address] [place] [phone] PCP - Attributed-MSSP 03/18/17 7 Willa Dorman, RUG SAMPLE BEVELER-SUPPLY AIDE [address] [place] [address] PCP - Attributed-MSSP 07/17/18 08/18/18 Charla Christopher DO [address] [place] [phone] PCP - Attributed-MSSP 05/28/17 8 Emperatriz Garvey RUG SAMPLE BEVELER-SUPPLY AIDE [address] [place] [phone] PCP - Attributed-MSSP 01/21/17 02/21/17 Eric Smith MD Physician Hematology 11/22/15 Chemo Bennett MD Physician Colon and Rectal Surgery 11/22/15 Shad Lerner MD Gastroenterology 06/24/16 documented as of this encounter
--- OUTSIDE RECORDS SUMMARY | 2025-08-01 18:11 | XMS_ITS | Clinical Summary ---
Author Organization [facility] [address] [place] [address] Address [facility] [place] [address] Care Team Providers Care Ambulatory Analyst Name Role Phone Tristen Lim DO Primary Care Provider [phone] Allergies Active Allergy Reactions Criticality Noted Date Comments Azathioprine Nausea and Vomiting Low 05/19/2014 Hydrocodone-Acetaminoph en Rash Low 05/19/2014 Metformin Diarrhea Low 11/07/2014 Nsaids (Non-Steroidal Anti-Inflammatory Drug) Other (See Comments) 05/19/2014 Contraindicated due to Crohn's disease Medications multivitamin (MULTIPLE VITAMIN ESSENTIAL ORAL) Take 1 Tablet by mouth daily. Active Lactobacillus acidophilus (Probiotic) 10 billion cell Capsule Take 1 Tablet by mouth daily. Active ALPRAZolam (XANAX) 1 mg tablet TAKE 1/2 TABLET BY MOUTH AT BEDTIME NEEDED INSOMNIA Active levothyroxine 25 mcg tabletIndication s:Hypothyroidism , unspecified type Take 1 Tablet (25 mcg) by mouth daily in the morning. 90 Tablet 2 5 Active hydrOXYzine HCL (ATARAX) 25 mg tabletIndication s:Insomnia, unspecified type TAKE 1 TABLET (25 MG) BY MOUTH NIGHTLY NEEDED FOR ANXIETY OR INSOMNIA. 90 Tablet 1 5 Active metoprolol succinate (TOPROL XL) 50 mg Extended Release 24 hour tablet Take 1 Tablet (50 mg) by mouth 2 times daily. 90 Tablet 3 5 Active diclofenac sodium (Voltaren) 1 % gel Apply 2 Grams to affected area 4 times daily. 100 Gram Active albuterol sulfate HFA 90 mcg/actuation aerosol inhaler Take 1 Puff by inhalation every 8 hours as needed for Shortness of Breath. 18 Gram 3 5 Active fluticasone propionate (FLONASE) 50 mcg/spray [place], Suspension nasal inhaler SPRAY 2 SPRAYS INTO EACH NOSTRIL EVERY DAY 48 mL 1 5 Active Active Problems Problem Noted Date Diagnosed Date Hyperlipidemia 12/29/2024 Ulcerative colitis with complication 12/29/2024 Inappropriate sinus tachycardia 12/29/2024 HTN (hypertension), benign 12/29/2024 Small airways disease 12/29/2024 Hypothyroidism 12/29/2024 Insomnia 12/29/2024 Hypovitaminosis D 12/29/2024 H/O herpes zoster 12/29/2024 Spondyloarthropathy 12/29/2024 HLA B27 (HLA B27 positive) 12/29/2024 Morbid obesity with BMI of 50.0-59.9, adult 12/15 Left breast mass 09/03/2021 Overview (09/03/2021): 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 Mckeon 05/19/2014 12/29/2024 Impaired fasting glucose 05/19/201408/2014 Encounters Date Type Department Care Team Description 07/04/2025 External Device Data [facility] ABSTRACTION Provider, Abstract from Last 3 Months Immunizations Immunization Administration Dates Next Due (ADACEL/BOOSTRIX)(10 YR UP) TDAP VACCINE, 0.5ML, IM 08/17/2011 INFLUENZA VACCINE QUADRIVALENT 3 YR UP PF IM 10/2013 Pneumococcal conjugate, unspecified formulation 08/17/2011 Family History Medical History Relation Name Comments Diabetes Maternal Grandfather Breast Cancer Maternal Grandmother Diabetes Maternal Grandmother Asthma Son Celiac Disease Neg Hx GERD Neg Hx Gastric Cancer Neg Hx Kidney Disease Neg Hx Liver Disease Neg Hx Pancreatic Cancer Neg Hx Rectal Cancer Neg Hx Stomach Cancer Neg Hx Ulcerative Colitis Neg Hx Ulcers Neg Hx Relation Name Status Comments Maternal Grandfather Maternal Grandmother Son Social History Tobacco Use Types Packs/Day Years Used Date Smoking Tobacco: Never Smokeless Tobacco: Never Tobacco Cessation:Counseling Given: Not Answered Alcohol Use Standard Drinks/Week Comments No 0 (1 standard drink = 0.6 oz pur e alcohol) Comments No Sex and Gender Information Value Date Recorded Sex Assigned at Not on file Legal Sex Female 8:53 AM CDT Gender Identity Not on file Sexual Orientation Not on file Occupation Industry Job Start Date Job End Date Not on file Not on file Not on file Not on file Last Filed Vital Signs Vital Sign Reading Time Taken Comments Blood Pressure 108/76 12/29/2024 2:06 PM CDT Pulse 98 12/29/2024 2:06 PM CDT Temperature 36.5 C (97.7 F) 12/29/2024 2:06 PM CDT Respiratory Rate 16 12/29/2024 2:06 PM CDT Oxygen Saturation 99% 12/29/2024 2:06 PM CDT Inhaled Oxygen Concentration - - Weight 130.2 kg (287 lb) 12/29/2024 2:06 PM CDT Height 157.5 cm (5' 2) 12/29/2024 2:06 PM CDT Body Mass Index 52.49 12/29/2024 2:06 PM CDT Plan of Treatment Health Maintenance Due Date Last Done Comments FIT/ DNA Q 3 YEARS (AUTO ORDER) 1991 FIT/FOBT Q 1 YEAR (AUTO ORDER) 1991 HEPATITIS B VACCINES (1 of 3 - 19+ 3-dose series) 1992 Traditional Medicare (ACO) A nnual Wellness Visit 1992 HPV/Cotest (21-29) 1994 HPV/Cotest (30-65) 2003 FIT-DNA Q 3 years 2018 FIT/FOBT Q 1 year 2018 Flex Sig/CT Colonography Q 5 years 2018 CERVICAL CANCER SCREENING 12/03/2018 PAP SMEAR 12/03/2018 12/04/2015, 10/17 (Previously completed) DTAP/TDAP/TD VACCINES (3 - T d or Tdap) 07/25/2022 07/25/2012, 08/17/2011 BREAST CANCER SCREENING 08/02/2022 08/02/20 21, 07/04/2021, 07/04/2021, Additional history exists ZOSTER VACCINE (1 of 2) 2023 FLEX SIG/CT COLONOGRAPHY Q 5 YEARS (AUTO ORDER) 02/13/2025 02/14/2020, 02/14/2020 INFLUENZA VACCINE (#1) 2025 9, 04/29/2018, 07/03/2017, Additional history exists COVID-19 Vaccine (3 - 2024-2 6 season) 2025 07/30/2021, 10/22/2020 Pre-Diabetes and Diabetes Screening 04/06/2028 04/06/2025 COLORECTAL CANCER SCREENING (AUTO ORDER) 11/08/2033 11/09/2023, 02/14/2020, 02/14/2020, Additional history exists COLORECTAL SCREENING 11/08/2033 11/09/2023, 02/14/2020, 02/14/2020, Additional history exists Colorectal Cancer Screening (AUTO ORDER) 11/08/2033 Colorectal Cancer Screening 11/08/2033 Procedures Procedure Name Priority Date/Time Associated Diagnosis Comments HEMOGLOBIN A1C Routine 04/06/2025 2:27 PM CDT Encounter to establish care with new doctor HTN (hypertension), benign Encounter for screening for diabetes mellitus MAMMO DIAG UNI LEFT 3D DEB W OR WO CAD Routine 08/02/2021 9:05 AM ISO COORDINATOR Unspecified lump in left breast, subareolar from Last 3 Months or Most Recently Relevant to Health Maintenance Results * HEMOGLOBIN A1C (04/06/2025 2:27 PM CDT) HEMOGLOBIN A1C 5.4 <5.7 % of total Hgb E-Duction-Aditi Starks Comment: For the purpose of screening for the presence of diabetes: <5.7% Consistent with the absence of diabetes 5.7-6.4% Consistent with increased risk for diabetes (prediabetes) > or =6.5% Consistent with diabetes This assay result is consistent with a decreased risk of diabetes. Currently, no consensus exists regarding use of hemoglobin A1c for diagnosis of diabetes in children. According to [place] Diabetes Association (ADA) guidelines, hemoglobin A1c <7.0% represents optimal control in non- diabetic patients. Different metrics may apply to specific patient populations. Standards of Medical Care in Diabetes(ADA). ESTIMATED AVERAGE GLUCOSE (MG/DL) 108 mg/dL E-DuctionAleja Starks ESTIMATED AVERAGE GLUCOSE (MMOL/L) 6.0 mmol/L E-DuctionAleja Starks Comment: FASTING:YES FASTING: YES Test Performed at: [place] [address] [address] [place] [id number] Martina-Abby Burt Vo Blood 04/06/2025 2:27 PM CDT 04/06/2025 2:29 PM CDT us Tristen Lim DO CHEMISTRY ORDERABLES Final Resu lt [facility] [phone] [place] [address] [address] [place] [id number] * (ABNORMAL) MAMMO DIAG UNI LEFT 3D DEB W OR WO CAD (08/02/2021 9:05 AM ISO COORDINATOR) Anatomical Region Laterality Modality Breast Left Mammography 08/02/2021 9:05 AM ISO COORDINATOR Impressions 08/02/2021 12:46 PM ISO COORDINATOR IMPRESSION: 1. Probably unchanged subareolar mass in the left breast corresponding to mass on chest CT. However, precise comparison is limited due to lack of tomosynthesis on the prior examination. Follow-up ultrasound is recommended in six months to ensure stability. RECOMMENDATIONS: Left breast ultrasound in six months. DICTATION LOCATION: [facility] Narrative 08/02/2021 12:46 PM ISO COORDINATOR LEFT DIGITAL DIAGNOSTIC MAMMOGRAM WITH TOMOSYNTHESIS AND CAD LEFT BREAST ULTRASOUND, LIMITED DATE: 08/02/2021 9:09 AM HISTORY: 46-year-old female with left breast lump on chest CT 06/28/2021. COMPARISON(S): Mammograms [address] 06/28/2021. BREAST COMPOSITION: There are scattered areas of fibroglandular density. FINDINGS: Mammogram views include full field CC and MLO views with tomosynthesis. A 9-10 mm mass is present in the slightly upper slightly outer subareolar left breast, corresponding to the mass seen in the left breast on CT. Targeted ultrasound of the left breast at 2:00 2 cm from the nipple demonstrates an oval hypoechoic mass with lobulated margin on one end, parallel in orientation measuring 1.1 x 1.1 x 0.5 cm. This appears most consistent with fibroadenoma. Results conveyed to the patient at the time of imaging. OVERALL FINAL ASSESSMENT: LEFT BI-RADS CATEGORY 3: PROBABLY BENIGN Procedure Note Theresa Melchor MD - 08/02/2021 LEFT DIGITAL DIAGNOSTIC MAMMOGRAM WITH TOMOSYNTHESIS AND CAD LEFT BREAST ULTRASOUND, LIMITED DATE: 08/02/2021 9:09 AM HISTORY: 46-year-old female with left breast lump on chest CT 06/28/2021. COMPARISON(S): Mammograms [address] 06/28/2021. BREAST COMPOSITION: There are scattered areas of fibroglandular density. FINDINGS: Mammogram views include full field CC and MLO views with tomosynthesis. A 9-10 mm mass is present in the slightly upper slightly outer subareolar left breast, corresponding to the mass seen in the left breast on CT. Targeted ultrasound of the left breast at 2:00 2 cm from the nipple demonstrates an oval hypoechoic mass with lobulated margin on one end, parallel in orientation measuring 1.1 x 1.1 x 0.5 cm. This appears most consistent with fibroadenoma. Results conveyed to the patient at the time of imaging. OVERALL FINAL ASSESSMENT: LEFT BI-RADS CATEGORY 3: PROBABLY BENIGN IMPRESSION: 1. Probably unchanged subareolar mass in the left breast corresponding to mass on chest CT. However, precise comparison is limited due to lack of tomosynthesis on the prior examination. Follow-up ultrasound is recommended in six months to ensure stability. RECOMMENDATIONS: Left breast ultrasound in six months. DICTATION LOCATION: [facility] us Donnie Savage MD MAMMO ORDERABLES Final Resul t from Last 3 Months or Most Recently Relevant to Health Maintenance Insurance MEDICARE PART A [place] B MEDICAID [place] Care Teams Ambulatory Analyst Relationship Specialty Start Date End Date Tristen Lim DO [address] [place] [id number] PCP - General Internal Medicine 12/29/24
--- OUTSIDE RECORDS SUMMARY | 2025-08-01 18:11 | XMS_ITS | Clinical Summary ---
Author Organization [facility] [employer] Address [address] [place] [address] Care Team Providers Care Blaster Helper Name Role Phone Eric Smith MD Unavailable Chemo Bennett MD Unavailable [phone] Shad Lerner MD Unavailable [phone] Source Comments [facility],non-owned Affiliates and Associated Physician Practices is amultiple site organization consisting of ambulatory clinics and hospital sitesin [place], [place], [place] and [place]. This disclosure is being madepursuant to the Care Everywhere program and may not contain all information available regarding this patient. Last updated 18.[facility] Allergies Active Allergy Reactions Criticality Noted Date Comments Azathioprine Dizziness,Nausea and/or Vomiting,Vomiting Low 05/19/2014 Other reaction(s): Nausea and Vomiting Codeine Rash Medium 09/07/2014 Hydrocodone-Acetaminophen Rash Low 04/13/2015 Hydrocodone-Acetaminophen Rash Medium 05/19/2014 Latex Skin Reactions Medium 11/09/2015 Water blisters, rash, skin peel Mercaptopurine Dizziness Medium 12/19/2014 Metformin Diarrhea Medium 11/07/2014 Nsaids Other Medium 04/13/2015 Contraindicated due to Crohn's disease Medications * Be aware that medications may not be up to date on this document. Alwaysverify current medications with the patient. diphenhydrAMINE (BENADRYL ALLERGY) 25 MG tablet Take 1 Tab by mouth every 6 hours as needed for Itching. 30 Tab 0 5 Active Probiotic Product (PROBIOTIC DAILY PO) Take 1 Tab by mouth once daily. Active Multiple Vitamin (MULTI VITAMIN DAILY PO) Take 1 Tab by mouth once daily Active VOLTAREN 1 % gel APPLY 2 GRAMS TO AFFECTED AREA 4 TIMES DAILY 100 g 2 9 Active traMADol (ULTRAM) 50 MG tabletIndicatio ns:Moderate to Moderately Severe Pain Take 1 (one) tablet by mouth every 6 hours as needed for Pain Acute pain of Left hip, M25.552 Reasons: Moderate to Moderately Severe Pain 24 tablet 1 Active levalbuterol (XOPENEX) 45 MCG/ACT inhaler TAKE TWO PUFFS NEBULIZED FOUR TIMES DAILY 2 Active levothyroxine (SYNTHROID) 25 MCG tablet 1 (one) tablet once daily 2 Active ergocalciferol (DRISDOL) 1.25 MG (58908 UT) capsule 1 (one) capsule Two times a week 1 Active azelastine (ASTELIN) 0.1 % nasal spray [place] 1 (one) spray into each nostril 2 times daily 30 mL 5 2 Active Tofacitinib Citrate (XELJANZ) 10 MG TABS Take by mouth every 12 hours 2 Active diphenhydramine /maalox/lidocai ne visc 1:1:1 (MAGIC MOUTHWASH) suspension Gargle and spit 5 cc every 4 hours for sore throat pain 120 mL 2 Active Additional Information Patient not taking.Reported on 10/23/2022 fluticasone propionate (Flonase) 50 MCG/ACT nasal spray [place] 2 (two) sprays into each nostril once daily 48 g 3 2 Active metoprolol succinate XL 24hr (Toprol XL) 50 MG tablet Take 1 (one) tablet by mouth 2 times daily 3 Active ALPRAZolam (Xanax) 1 MG tablet TAKE 1 TABLET BY MOUTH AT NIGHT NEEDED for insomnia 30 tablet 1 3 Active Active Problems Problem Noted Date Diagnosed Date Left breast mass 09/03/2021 Overview (10/17/2021): 1.1 cm fibroadenoma left breast Tachycardia, paroxysmal 07/11/2021 Overview (10/17/2021): Last Assessment & Plan: No evidence of pulmonary embolism by CT with PE protocol. Currently being evaluated and has upcoming nuclear stress test. Last Assessment & Plan: No evidence of pulmonary embolism by CT with PE protocol. Currently being evaluated and has upcoming nuclear stress test. Other hyperlipidemia 04/24/2021 Precordial pain 04/24/2021 Essential (hemorrhagic) thrombocythemia 04/06/20 20 1st MTP arthritis 12/16/2018 M. Obesity 06/30/2018 Overview (06/30/2018): BMI:42.52,as of 06/30/2018 Shortness of breath 06/18/2018 Pneumonia of lower lobe due to infectious organi sm 06/18/2018 Neuropathy 01/20/2018 Decreased sensation of leg 01/20/2018 Midline low back pain with sciatica 01/20/2018 Ulcerative chronic pancolitis with rectal bleedi ng 01/04/2018 Overview (10/17/2021): Added automatically from request for surgery [id number] Last Assessment & Plan: Doing well at this time on Xeljanz 10 mg b.i.d.. The patient could take 22 mg once daily. She had very difficult to treat colitis which had been refractory to anti TNF medication, Entyvio, Simponi, and is currently able be off of oral steroids. If there is a problem Stelara would be the next option. Added automatically from request for surgery [id number] Last Assessment & Plan: Doing well at this time on Xeljanz 10 mg b.i.d.. The patient could take 22 mg once daily. She had very difficult to treat colitis which had been refractory to anti TNF medication, Entyvio, Simponi, and is currently able be off of oral steroids. If there is a problem Stelara would be the next option. Kidney stones 11/22/2017 Overview (12/21/2017): Passed a stone 25 years ago. History of Crohn's (can't use NSAIDs) 11/22/17 CT in ER showed punctate left UVJ stone wth mild hydro. Normal Cr. U/a not suggestive of UTI. 12/08/17 renal Ultrasound: no hydro or stones Hip pain 06/29/2017 GERD without esophagitis 06/23/2017 Overview (10/17/2021): Last Assessment & Plan: Stable on pantoprazole Last Assessment & Plan: Stable on pantoprazole Sore throat 01/10/2017 Urination frequency 01/10/2017 Acute cystitis 12/21/2016 Eye irritation 12/02/2016 Neck pain 11/26/2016 Thoracic back pain 11/26/2016 Mood swings 10/31/2016 Overview (06/30/2018): 12/01/2017 Dr. Osvaldo WAYNE Vitamin D deficiency 10/15/2016 HLA B27 positive 11/22/2015 Ulcerative (chronic) pancolitis with other compl ication 10/16/2015 Overview (06/30/2018): 12/01/2017 Dr. Osvaldo WAYNE Inflammatory arthritis 08/27/2015 High risk medications (not anticoagulants) long- term use 08/27/2015 BMI 40.0-44.9, adult 07/11/2015 Overview (06/30/2018): BMI:42.52,as of 06/30/2018 Non morbid obesity due to excess calories 2014 Iron deficiency anemia due to chronic blood loss 03/07/2015 Resolved Problems Problem Noted Date Diagnosed Date Resolved Date Unspecified mood (affective) disorder 04/06/2020 10/17/2021 Rash 12/16/2018 01/13/2019 Inflammatory arthritis 03/30/201803/22 UTI (urinary tract infection) 01/10/2017 01/24/2017 M.obesity 10/31/2016 11/30/2017 Ulcerative colitis, unspecif ied with other complication 05/28/2016 10/31/2016 Ulcerative colitis 04/12/2015 6 Overview (05/17/2015): Dr. 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 Riley Immunizations Immunization Administration Dates Next Due COVID TRAY PRIMARY 18+YR 10/22/2020 Covid Moderna primary monova lent 12+ yr 0.5mL 07/30/2021 INFLUENZA VACCINE 07/03/2017,05/19/2014 INFLUENZA VACCINE, CELL CULT URE, QUADR. (FLUCELVAX QUADRIVALENT; 6MO+) (CCIIV4) 07/03/2017 INFLUENZA VACCINE, QUADR. (F LUZONE; FLULAVAL; FLUARIX; AFLURIA QUADRIVALENT; 6MO+), 0.5 ML (IIV4) 05/03/2019,05/31/2015,05/19/2014 PNEUMOCOCCAL PPSV23 08/17/2011 Pneumococcal Pcv13 Conj 12/02/2017 TDAP (7yrs+) 07/25/2012,08/17/2011 iNFLUENZA VACCINE, RECOM-DAO, QUADR. (FLUBLOCK QUADRIVALENT; 18Y+) (RIV4) 04/29/2018 Family History Medical History Relation Name Comments Arthritis - Osteo Maternal Grandfather Diabetes Maternal Grandfather Rashes/Skin Problems Maternal Grandfather Stroke Maternal Grandfather Cancer Maternal Grandmother Cancer - Breast Maternal Grandmother Diabetes Maternal Grandmother Arthritis - Osteo Mother Hypertension Mother Diabetes Paternal Grandfather Hypertension Paternal Grandfather Relation Name Status Comments Maternal Grandfather Maternal Grandmother Mother Paternal Grandfather Social History Tobacco Use Types Packs/Day Years Used Date Smoking Tobacco: Never Smokeless Tobacco: Never Tobacco Cessation:Counseling Given: Not Answered Alcohol Use Standard Drinks/Week Comments No 0 (1 standard drink = 0.6 oz pur e alcohol) rarely AUDIT-C Answer Date Recorded Q1: How often do you have a drink containing alc ohol? Never 10/10/2021 Average Number of Drinks Not on file 022 Frequency of Binge Drinking Not on file 09/18 PHQ-2 Answer Date Recorded PHQ2 TOTAL SCORE 0 11/06/2022 Comments No Sex and Gender Information Value Date Recorded Sex Assigned at Female 03/05/2021 9:48 AM CDT Legal Sex Female 7:32 PM [employer] Gender Identity Female 03/05/2021 9:48 AM CDT Sexual Orientation Straight 03/05/2021 9: 48 AM CDT Occupation Industry Job Start Date Job End Date Disability Not on file Not on file Not on file Last Filed Vital Signs Vital Sign Reading Time Taken Comments Blood Pressure 112/68 11/06/2022 2:46 PM CDT Pulse 86 11/06/2022 2:46 PM CDT Temperature 35.9 C (96.6 F) 10/23/2022 8:00 AM [employer] Respiratory Rate 20 10/23/2022 8:00 AM [employer] Oxygen Saturation 98% 11/06/2022 2:46 PM CDT Inhaled Oxygen Concentration - - Weight 117.3 kg (258 lb 9.6 oz) 11/06/2022 2:46 PM CDT Height 157.5 cm (5' 2) 11/06/2022 2:46 PM CDT Body Mass Index 47.3 11/06/2022 2:46 PM CDT Plan of Treatment Health Maintenance Due Date Last Done Comments COLOGUARD (AGES 45-75) - COLON CA SCREENING 1973 CT COLONOGRAPHY - COLON CA SCREENING 1973 FIT - COLON CA SCREENING 1973 FLEX SIG - COLON CA SCREENING 1973 HIV SCREENING 1988 DTAP/TDAP/TD VACCINES (3 - Td or Tdap) 07/25/2022 07/25/2012, 08/17/2011 PAP SMEAR 03/26/2023 03/26/2020 (Done Outside Per Patient), 12/04/2015, 05/26/2014 PNEUMOCOCCAL VACCINE 50+ (3 of 3 - PCV20 or PCV21) 2023 12/02/2017, 08/17/2011 ZOSTER VACCINE (1 of 2) 2023 MAMMOGRAM 08/02/2023 08/02/2021, 06/17, 07/04/2021, Additional history exists MEDICARE AWV 12 MONTHS 11/07/2023 11/06/2022, 11/06/2022, 10/17/2021, Additional history exists DEPRESSION SCREENING 08/17/2024 11/06/2022, 10/23/2022, 02/24/2022, Additional history exists SCREENING FOR DIABETES 10/10/2024 , 03/17/2021, 02/15/2021, Additional history exists COVID-19 VACCINE ( season) 2025 07/30/2021, 10/22/2020 INFLUENZA VACCINE (#1) 2025 9, 04/29/2018, 07/03/2017, Additional history exists LIPID TESTING 02/15/2026 02/15/2021, 05/18, 02/06/2015 COLON MONITORING 02/13/2030 02/14/2020, , 01/20/2018, Additional history exists COLONOSCOPY - COLON CA SCREENING 02/13/2030 02/14/2020, 02/14/2020, 01/20/2018, Additional history exists Colorectal Cancer Screening 02/13/2030 HEPATITIS C SCREENING Completed 05/11/2018 , 06/29/2015, 06/29/2015 HEPATITIS B VACCINE Discontinued HIB VACCINE Aged Out No longer eligi ble based on patient's age to complete this topic HPV VACCINE Aged Out No longer eligi ble based on patient's age to complete this topic MENINGOCOCCAL (Group B) VACCINE SHARED DECISION-MAKING Aged Out No longer eligible based on patient's age to complete this topic MENINGOCOCCAL GROUPS A/C/Y/W VACCINE Aged Out No longer eligible based on patient's age to complete this topic Goals Goal Patient Goal Type Associated Problems Recent Progress Patient-Stated? Author Patient Stated Goal: General On track( 018 2:00 PM [employer]) Yes Yuli Jett RN Note: Lalit will call the doctor if: he/she has an increased temperature (greater than 101), unrelieved pain, symptoms that are not relieved or worsening, and side effects of medications. Progress toward goal attainment: 0% : Ongoing / No progress Barriers to goal attainment: None identified at this time. Yearly PCP visit Lifestyle No WhiteHalie A Have labs drawn Lifestyle No White, Halie A Take recommended medication(s) Lifestyle No White, Halie A Use safety retraint in car Lifestyle No WhiteHalie A Complete Health Maintenance Screenings Lifestyle No WhiteHalie A Procedures Procedure Name Priority Date/Time Associated Diagnosis Comments COMPREHENSIVE METABOLIC PANEL STAT 10/10/2021 8:09 PM [employer] MAMMOGRAM 07/04/2021 LIPID PROFILE Routine 02/15/2021 11:12 AM CDT Hyperlipidemia, unspecified hyperlipidemia type ENDOSCOPY, COLON, SCREENING Routine 02/14/2020 HEPATITIS SCREEN ACUTE Routine 05/11/2018 3:32 PM CDT Fatigue, unspecified type PAP IG LB RFLX HPV HR ALL Routine 12/04/2015 3:19 PM CDT Cervical cancer screening from Last 3 Months or Most Recently Relevant to Health Maintenance Results * (ABNORMAL) COMPREHENSIVE METABOLIC PANEL (10/10/2021 8:09 PM [employer]) Glucose 117(H) 70 - 105 mg/dL 10/10/2021 8:32 PM [facility] [employer] Sodium 139 136 - 145 mmol/L 10/10/2021 8:32 PM [employer] [facility] Potassium 3.4(L) 3.5 - 5.1 mmol/L 10/10/2021 8:32 PM [employer] [facility] Chloride 104 98 - 107 mmol/L 10/10/2021 8:32 PM [facility] [employer] CO2 22(L) 23 - 31 mmol/L 10/10/2021 8:[address] [facility] Calcium 9.9 8.4 - 10.4 mg/dL 10/10/2021 8:[address] [facility] Anion Gap 13 8 - 18 mmol/L 10/10/2021 8:[address] [facility] BUN 13 7 - 18.7 mg/dL 10/10/2021 8:[address] [facility] Creatinine 0.94 0.57 - 1.11 mg/dL 10/10/2021 8:[address] [facility] Alkaline Phosphatase 55 40 - 150 U/L 10/10/2021 8:[address] [facility] ALT 21 0 - 61 U/L 10/10/2021 8:[address] [facility] AST 21 5 - 34 U/L 10/10/2021 8:[address] [facility] Protein Total 7.8 6.4 - 8.3 gm/dL 10/10/2021 8:[address] [facility] Albumin 4.5 3.5 - 5.2 gm/dL 10/10/2021 8:[address] [facility] Bilirubin Total 0.3 0.2 - 1.2 mg/dL 10/10/2021 8:[address] [facility] eGFR by MDRD >60 >60 mL/min/1.7 3m2 10/10/2021 8:[address] [facility] eGFR by MDRD >60 >60 mL/min/1.7 3m2 10/10/2021 8:[address] [facility] Blood BLOOD SPECIMEN / Unknown Venipuncture / Unknown 10/10/2021 8:09 PM [employer] 10/10/2021 8:13 PM [facility] us Ita Benson [employer] MANAGER LAB - CHEMISTRY ORD ERABLES Final Result [facility] [address] [place] [id number] * MAMMOGRAM (07/04/2021) Anatomical Region Laterality Modality Other 07/04/2021 Narrative 07/04/2021 Ordered by an unspecified provider. us Scanned Document SCANNING ONLY Final Result * (ABNORMAL) LIPID PROFILE (02/15/2021 11:12 AM CDT) Cholesterol 240(H) 100 - 199 mg/dL [facility] INSURANCE BILL Triglycerides 200(H) 0 - 149 mg/dL [facility] INSURANCE BILL HDL Cholesterol 59 >39 mg/dL [facility] INSURANCE BILL VLDL Calculated 36 5 - 40 mg/dL [facility] INSURANCE BILL LDL Calculated 145(H) 0 - 99 mg/dL [facility] INSURANCE BILL Comment NOT NEEDED [facility] INSURANCE BILL Comment: FASTING Ancillary determined the test is not needed. Blood BLOOD SPECIMEN / Unknown 02/15/2021 11:12 AM CDT 02/15/2021 Narrative Resulting Agency Comment Lab Testing performed at: [facility] [address] [phone] Bria Nelson [employer] MANAGER LAB - CHEMISTRY ORDER PATRICIA Final Result [facility] INSURANCE BILL [address] [place] [address] * ENDOSCOPY, COLON, SCREENING (02/14/2020) us Provider Unknown GI PROCEDURE ORDERABLES Final R esult * HEPATITIS SCREEN ACUTE (05/11/2018 3:32 PM CDT) Hepatitis A Virus Antibody IgM Non Reactive Non Reactive [facility] INSURANCE BILL Hepatitis B Virus Surface Antigen Non Reactive Non Reactive [facility] INSURANCE BILL Hepatitis B Core Virus Antibody IgM Non Reactive Non Reactive [facility] INSURANCE BILL Hepatitis C Antibody Non Reactive Non Reactive [facility] INSURANCE BILL Comment: Non Reactive - Antibodies to Hepatitis C virus (HCV) were no t detected, result does not exclude early acute HCV infection. Non Reactive - Antibodies to Hepatitis C virus (HCV) were no t detected, result does not exclude early acute HCV infection. Blood BLOOD SPECIMEN / Unknown 05/11/2018 3:32 PM CDT 05/11/2018 Narrative Resulting Agency Comment [facility] [address] [place] [phone] us Reanna Vernon MD LAB - CHEMISTRY ORDERABLES Final Result [facility] INSURANCE BILL [address] [place] [address] * PAP IG REFLX HPV ALL PTH (PO REF LAB) (12/04/2015 3:19 PM CDT) Diagnosis [facility] INSURANCE BILL Comment:NEGATIVE FOR INTRAEP ITHELIAL LESION AND MALIGNANCY. Specimen Adequacy [facility] INSURANCE BILL Comment:Satisfactory for carley luation. Clinician Provided ICD10 [facility] INSURANCE BILL Comment: D25.9 Z12.4 Performed by [employer] INSURANCE BILL Comment:Joshua Alicea totechnologist (ASCP) Comment . [facility] INSURANCE BILL Note [facility] INSURANCE BILL Comment: The Pap smear is a screening test designed to aid in the detection of premalignant and malignant conditions of the uterine cervix. It is not a diagnostic procedure and should not be used as the sole means of detecting cervical cancer. Both false-positive and false-negative reports do occur. . [employer] CPT Code Automation [facility] INSURANCE BILL Comment: This liquid based ThinPrep(R) pap test was screened with the use of an image guided system. Note [employer] INSURANCE BILL Comment: The HPV DNA reflex criteria were not met with this specimen result therefore, no HPV testing was performed. . Miscellaneous samples (specimen) ENTIRE ENDOCERVIX / Unknown 12/04/2015 3:19 PM CDT 12/05/2015 2:30 AM CDT Narrative [facility] INSURANCE BILL - 12/06/2015 9:29 AM CDT No. of containers..01 CYTYC Thin Prep Vial Resulting Agency Comment [address] [phone] us Olga Beckett MD LAB - PATHOLOGY/CYTOLOGY ORDERAB LES Final Result Performing Organization Address City/[facility]/ZIP Co de Phone Number [facility] INSURANCE BILL [address] [place] [address] from Last 3 Months or Most Recently Relevant to Health Maintenance Insurance [place]IC[place] BENEFIT [facility] MEDICARE MEDICAID [place] BENEFIT - [facility] Advance Directives * Full Code (Latest Code Status on File) Date Activated Date Inactivated Comments 06/18/2018 10:16 PM 06/21/2018 12:17 PM * Full Code Date Activated Date Inactivated Comments 11/22/2017 6:48 PM 11/23/2017 11:01 AM * Full Code Date Activated Date Inactivated Comments 11/16/2014 1:25 AM 11/22/2014 3:17 PM Care Teams Blaster Helper Relationship Specialty Start Date End Date Eric Smith MD Physician Hematology 11/22/15 Chemo Bennett MD Physician Colon and Rectal Surgery 11/22/15 Shad Lerner MD Gastroenterology 06/24/16
--- OUTSIDE RECORDS SUMMARY | 2025-08-01 18:12 | XMS_ITS | Data Portability ---
Author Organization [employer] , [facility]_[employer] Address [address] [place] [address] Assessment Encounter Date Assessment Date Assessment LastModified by Organization Details LastModified Time 04/03/2025 04/03/2025 49-year-old female with a history of uterine leiomyoma presenting with heavy menstrual bleeding. The fibroids have been present for approximately ten years, initially asymptomatic, but have recently caused significant bleeding, leading to anemia and the need for potential surgical intervention Not available 04/03/2025 17:16:19 04/04/2025 04/04/2025 49-year-old female with a history of uterine leiomyoma presenting with heavy menstrual bleeding. The fibroids have been present for approximately ten years, initially asymptomatic, but have recently caused significant bleeding, leading to anemia and the need for potential surgical intervention Not available 04/03/2025 19:45:48 Plan of Treatment Reminders Order Date Submit Date Provider Last Modified By Organization Details Last Modified Time Details Appointments None recorded. Lab CBC w/ auto diff 2024 025 Titans[employer] Rodanthe Sherif, [address] [place], [address], 5 11:31:32 ferritin, serum or plasma 2024 025 [employer] [facility], [address] [facility], [place], [address], 06:58:20 Referral None recorded. Procedures None recorded. Surgeries None recorded. Imaging US, transvagina l 2024 025 [email or web address] Not available 15:56:32 Medication Orders None recorded. Patient TargetsNo targets recorded. Patient Instructions Encounter Date Encounter Id Patient Instructions Last Modified By Organization Details Last Modified Time 04/03/2025 [id number] - Schedule an ultrasound and endometrial biopsy to evaluate fibroids. - Follow up with a spool tender for ulcerative colitis management. - Monitor hemoglobin levels and consider iron infusions if necessary. - Follow up with a tape sewing machine operator for anemia management. - Continue routine monitoring of the benign breast nodule. [email or web address] Not available 04/03/2025 16:14:52 Reason for Referral None Reported. Results Created Date Observation Date Name Description Value Unit Range Abnormal Flag Note LastModifiedBy Organization Detail LastModifiedTime 04/05/2004/05/2025 CBC (INCL UDES DIFF/ PLT) WBC 10.0 thous and/u L 4.0 - 9.8 high [place], [address], 04/05/2025 11:31:32 04/05/20 25 04/05/2025 CBC (INCL UDES DIFF/ PLT) RBC 4.6 mitch on/uL 3.9 - 4.9 normal [place], [address], 04/05/2025 11:31:32 04/05/20 25 04/05/2025 CBC (INCL UDES DIFF/ PLT) hemoglobin 13.8 g/dL 11.8 - 14.8 normal [place], [address], 04/05/2025 11:31:32 04/05/20 25 04/05/2025 CBC (INCL UDES DIFF/ PLT) hematocrit 41.4 % 35.5 - 44.0 normal [place], [address], 04/05/2025 11:31:32 04/05/20 25 04/05/2025 CBC (INCL UDES DIFF/ PLT) MCV 90.8 fL 82.0 - 99.0 normal [place], [address], 04/05/2025 11:31:32 04/05/20 25 04/05/2025 CBC (INCL UDES DIFF/ PLT) MCH 30.3 pg 27.2 - 32.6 normal Not Available [address], [address], 04/05/2025 11:31:32 04/05/20 25 04/05/2025 CBC (INCL UDES DIFF/ PLT) MCHC 33.3 g/dL 31.5 - 35.5 normal Not Available [address], [address], 04/05/2025 11:31:32 04/05/20 25 04/05/2025 CBC (INCL UDES DIFF/ PLT) RDW-CV 14.4 % 11.5 - 14.5 normal Not Available [address], [address], 04/05/2025 11:31:32 04/05/20 25 04/05/2025 CBC (INCL UDES DIFF/ PLT) platelet 124 thous and/u L 140 - 350 low COMME NT: PLT = Micro scopi c plate let clump s prese nt on smear revie w. Plate let count may be sligh tly highe r than indic ated. Not Available [address], [address], 04/05/2025 11:31:32 04/05/20 25 04/05/2025 CBC (INCL UDES DIFF/ PLT) MPV 12.2 fL 9.3 - 12.4 normal Not Available [address], [address], 04/05/2025 11:31:32 04/05/20 25 04/05/2025 CBC (INCL UDES DIFF/ PLT) absolute neutrophil 6.55 thous and/u L 1.90 - 7.00 normal Not Available [address], [address], 04/05/2025 11:31:32 04/05/20 25 04/05/2025 CBC (INCL UDES DIFF/ PLT) absolute lymphocyte 2.02 thous and/u L 0.70 - 4.50 normal Not Available [address], [address], 04/05/2025 11:31:32 04/05/20 25 04/05/2025 CBC (INCL UDES DIFF/ PLT) absolute monocyte 0.91 thous and/u L 0.10 - 1.30 normal Not Available [address], [address], 04/05/2025 11:31:32 04/05/20 25 04/05/2025 CBC (INCL UDES DIFF/ PLT) absolute eosinophil 0.18 thous and/u L <0.70 normal Not Available [address], [address], 04/05/2025 11:31:32 04/05/20 25 04/05/2025 CBC (INCL UDES DIFF/ PLT) absolute basophil 0.12 thous and/u L <0.20 normal Not Available [address], [address], 04/05/2025 11:31:32 04/05/20 25 04/05/2025 CBC (INCL UDES DIFF/ PLT) absolute immature granulocyte 0.22 thous and/u L <0.03 high Not Available [address], [address], 04/05/2025 11:31:32 04/03/20 25 04/04/2025 JEREMY TIN ferritin 22 NG/mL 16-232 normal Not Available [facility] [address] , [place], [address], 04/04/2025 06:58:20 04/04/20 25 04/04/2025 US, trans vagin al No observ ation record ed. [email or web address] Collette [address], [place], [address], 04/04/2025 14:47:16 Result Notes None recorded. Procedures Surgical History Date Name Laterality Status Provider Name and Address Organization Details Recorded Time 11/16/19 24 Date of Last Colonoscopy completed [facility] 04/03/2025 15:47:43 10/16/19 21 Most Recent Mammogram completed [facility] 04/03/2025 15:43:37 08/17/19 20 Date of Last Pap Smear completed [facility] 04/03/2025 15:43:37 08/17/19 19 D & C completed [facility] 04/03/2025 15:49:03 08/17/19 16 Most Recent Bone Density completed [facility] 04/03/2025 15:43:[address] [facility] 04/03/2025 15:43:37 tonsillectomy completed Rin [facility] 04/04/2025 13:16:00 Imaging Results None recorded. Procedure Notes None recorded. Medical Equipment None Reported. Allergies Allergen ID Allergen Name Allergen Category Reaction Reaction Severity Criticality Documentation Date Start Date Code Code System Note Provider Name and Address Organization Details Recorded Time 236807 codeine medicatio n Not available Not available Not available 04/03/2025 2670 RxNorm Lisa Chau [facility] 15:43:37 831002 hydrocodo ne Not available Not available Not available Not available 04/03/2025 5489 RxNorm Lisa Chau [facility] 15:43:37 272328 albuterol medicatio n Not available Not available Not available 04/03/2025 435 RxNorm Lisa Chau [facility], [facility] [employer] [facility] IV 15:43:37 896520 house dust allergeni c extract environme nt,medica tion Not available Not available Not available 04/03/2025 03869 9 RxNorm Lisa Chau [facility] [employer] [facility] IV 15:43:37 196286 Canis lupus familiari s extract environme nt Not available Not available Not available 04/03/2025 63913 4 [facility] 15:43:37 167728 mold extract environme nt Not available Not available Not available 04/03/2025 94020 8 [facility] 15:43:37 731221 cigarette smoke environme nt Not available Not available Not available 04/03/2025 [facility] 15:43:37 Medications Name Sig Start Date Stop Date Status Note LastModified by Organization Details LastModified Time prednisone 10 mg tablet TAKE 4 TABLETS BY MOUTH DAILY 04/03 completed Not Available Not Available Not Available Toprol XL 100 mg tablet,exte nded release Take 1 tablet every day by oral route. active Not Available Not Available No t Available alprazolam 1 mg tablet TAKE 1/2 TABLET BY MOUTH AT BEDTIME NEEDED INSOMNIA active Not Available Not Available No t Available metoprolol succinate ER 50 mg tablet,exte nded release 24 hr TAKE 1 TABLET BY MOUTH TWICE A DAY 04/04 completed Not Available Not Available Not Available valacyclovi r 1 gram tablet TAKE 1 TABLET BY MOUTH THREE TIMES A DAY 04/03 completed Not Available Not Available Not Available tramadol 50 mg tablet TAKE 1-2 TABLETS BY MOUTH EVERY 6 HOURS NEEDED FOR MODERATE PAIN (ABDOMINA L PAIN). active Not Available Not Available No t Available levothyroxi ne 25 mcg tablet TAKE 1 TABLET (25 MCG) BY MOUTH DAILY IN THE MORNING active Not Available Not Available No t Available dexamethaso ne 0.5 mg/5 mL oral elixir TAKE 5 ML BY MOUTH THREE TIMES DAILY. SWISH AND SPIT active Not Available Not Available No t Available alprazolam 0.5 mg tablet TAKE 1 TABLET BY MOUTH NIGHTLY NEEDED FOR ANXIETY 04/03 completed Not Available Not Available Not Available hydrocortis one 100 mg/60 mL enema UNWRAP AND INSERT 60 ML INTO THE RECTUM EVERY NIGHT AT BEDTIME. active Not Available Not Available No t Available triamterene 37.5 mg-hydrochl orothiazide 25 mg tablet TAKE 1 TABLET BY MOUTH EVERY DAY 04/03 completed Not Available Not Available Not Available hydroxyzine HCl 25 mg tablet TAKE 1 TABLET (25 MG) BY MOUTH NIGHTLY NEEDED FOR ANXIETY OR INSOMNIA. active Not Available Not Available No t Available methylpredn isolone 4 mg tablets in a dose pack TAKE 6 TABLETS ON DAY 1 DIRECTED ON PACKAGE AND DECREASE BY 1 TAB EACH DAY FOR A TOTAL OF 6 DAYS 04/03 completed Not Available Not Available Not Available ondansetron 4 mg disintegrat ing tablet TAKE 1 TABLET BY MOUTH EVERY 8 HOURS NEEDED FOR NAUSEA AND VOMITING 04/03 completed Not Available Not Available Not Available fluoxetine 20 mg capsule TAKE 1 CAPSULE BY MOUTH EVERY DAY active Not Available Not Available No t Available fluticasone propionate 50 mcg/actuati on nasal spray,suspe nsion SPRAY 2 SPRAYS INTO BOTH NOSTRILS ONCE A DAY active Not Available Not Available No t Available budesonide DR-ER 9 mg tablet,sonja yed and extended release TAKE 1 TABLET BY MOUTH DAILY. SWALLOW WHOLE DO NOT CRUSH OR CHEW TABLET. AVOID GRAPEFRUI T JUICE. active Not Available Not Available No t Available Rinvoq 30 mg tablet,exte nded release Take 1 tablet every day by oral route. active Not Available Not Available No t Available Vitals Date Recorded Body height Body mass index (BMI) Body weight Systolic And Diastolic Provider Name and Address Organization Details Last Updated DateTime 04/03/2025 157.48 cm 51.8 kg/m2 246671.36 g 126/78 mm[Hg] Lisa Chau [facility] [employer] [facility] 04/03/2025 15:55:12 Date Recorded Body height Body mass index (BMI) Body weight Systolic And Diastolic Provider Name and Address Organization Details Last Updated DateTime 04/04/2025 157.48 cm 51.7 kg/m2 503050.92 g 122/80 mm[Hg] Rin Chau [place] [employer] [facility] 04/04/2025 13:14:38 Social History Question Answer Notes LastModified by Organizat ion Details LastModified Time Tobacco Smoking Status Never Smoker Lisa Chau [facility] [place] [facility] [employer] IV 04/03/2025 15:43:37 If You Are , What Was Your Level Of Alcohol Consumption Prior To ? None [place] [id number] Information not available 04/03/2025 Are You Blind Or Do You Have Difficulty Seeing? No [place] [address] Information not available 04/03/2025 Are You Deaf Or Do You Have Serious Difficulty Hearing? No Information not available 04/03/2025 What Type Of Diet Are You Following? CARBOHYDRATE [email or web address] Information not available 04/03/2025 How Many Children Do You Have? 1 [email or web address] Information not available 04/03/2025 What Is Your Relationship Status? Information not available 04/03/2025 Are You Sexually Active? Yes [email or web address] Information not available 04/03/2025 Sex: Unknown Functional Status Question Answer Note LastModified by Organizat ion Details LastModified Time Do you use any illicit or recreational drugs? No [email or web address] Information not available 04/03/2025 What is your level of alcohol consumption? Occasional [email or web address] Information not available 04/03/2025 Are you currently employed? No [email or web address] Information not available 04/03/2025 What is your exercise level? Occasional [email or web address] Information not available 04/03/2025 Mental Status None recorded. Family History Relationship Description Onset Age of this Age Resolved Age Notes LastModified by Organization Details LastModified Time Maternal Grandmother Malignant neoplasm of breast [place] [id number] Not available 04/03 15:48:31 Medical History Condition Response Other Cancer N High Blood Pressure Y Colon Cancer N Cytomegalovirus N Hyperthyroidism N MRSA N Blood Transfusion N Herpes (HSV) N Breast Cancer N Lung Cancer N Hypothyroidism Y Depression N Incontinence N Panic Attacks N Neurological Disorder N Deep Vein Thrombosis N Anxiety Disorder Y Autoimmune disease N Arthritis N Shingles N Tuberculosis/Positive PPD N Infertility N Polycystic Ovarian Syndrome N Cervical Cancer N Chlamydia N Hematuria N Stroke N Varicosities N Seasonal allergies N Crohn's Disease N Alzheimer's/Dementia N COPD/Emphysema N Endometriosis N HPV/Genital Warts N IBS (Irritable Bowel Syndrome) N History of Abnormal Pap N High Cholesterol N Liver Disease N Kidney Infection N Fibromyalgia N Ulcer N Kidney Disease N HIV N Gallbladder disease N Von Willebrand disease N Sickle Cell Disease/Trait N ADD/ADHD N Eating Disorder N Diabetes Mellitus (non-insulin dependent ) N Anemia N Ovarian Problems N Multiple Sclerosis N Gonorrhea N Frequent Urinary Tract infections N Osteopenia N Headaches/migraines N GERD (reflux) N Ovarian Cancer N Diabetes (insulin dependent) N Seizures/Epilepsy N Breast Problems N Fibroids N Asthma N Heart Attack N Endometrial Cancer N Lupus N Rubella N Blood Clotting Disorder N Bipolar Disorder N Diabetes Mellitus (during ) N Ulcerative Colitis Y Hepatitis N Heart Disease N Pulmonary Embolism N RPR N Chicken Pox N Osteoporosis N Gynecological History Statement/Question Response Date of Last Colonoscopy 11/16/2023 Flow Heavy Date of LMP Most Recent Bone Density 08/17/2015 Date of Last Pap Smear 08/17/2019 Duration of Flow (days) 28 Most Recent Mammogram 10/15/2020 Current Control Method None Age at Menarche 10 Obstetrics History GPAL:G 1 P 1 0 0 1 Type Value Full Term 1 Living 1 Total 1 Past Encounters Encounter ID Performer Location Encounter Start Date Encounter Closed Date Diagnosis/Indication Diagnosis SNOMED-CT Code Diagnosis ICD10 Code Diagnosis IMO Codes Diagnosis Note [id number] Susan Benitez MD [facility] [address] [place] [phone] 04/03/2025 15:36:28 04/03/2025 16:41:15 Uterine leiomyoma 23010115 D25.9 [id number] The plan includes scheduling an ultrasound and endometria l biopsy to assess the current status of the fibroids and rule out any malignancy . Considerat ion of surgical interventi on, such as hysterecto my, is discussed due to the severity of bleeding and anemia. Alternativ e treatment options, such as uterine artery embolizati on, are also considered to manage symptoms and reduce fibroid size. Menometrorrhagia 5486780 08 N92.1 74749 Iron defic iency anemia due to blood loss 167998860 D50.0 420394 Anemia: Anemia management includes monitoring hemoglobin levels and considerin g iron infusions as needed. The patient is advised to follow up with a hematologi st for further evaluation and management of anemia. Patient does not currently have a hematologi st as she is new to the area. [id number] Susan Benitez MD [id number] [place] [address] 04/04/2025 12:24:23 04/04/2025 15:56:32 Uterine leiomyoma 92735880 D25.9 10060486 Menometrorrhagia 8320133 08 N92.1 12975 - Endometriu m is thickened- Several risk factors for endometria l cancer- Not prepared to complete endometria l biopsy today- Will return Iron defic iency anemia due to blood loss 893071442 D50.0 946592 Subserous leiomyoma of uterus 78755908 D25.2 10502 - Patient needs UAE or hysterecto my- BMI is significan t risk factor for surgery Severe obesity 175191152 1 9104 E66.813 Z68.43 [id number] Intramural leiomyoma of uterus 98610303 D25.1 58323 Health Concerns Section Related Observation LastModified by Organization Detai ls LastModified Time None Recorded Concern Status LastModified by Organization Details LastModified Time None Recorded Advance Directives Directive None Recorded Payers Insurance Date Sequence Insurance Name Policy Number Policy Dacosta Covered Member ID Dacosta Member ID Guarantor Name 06/15/2025 2 [place] Nae Horan [id number] Nae Luiskins 04/26/2025 1 [place] Nae Donovan Marline [id number] Nae Luiskins Notes Date Note Type Note Provider Name and Address Organization Details Recorded Time 04/03/20 25 text/htm l Nae 49 y/o new patient, here for fibroid consult, she 1st diagnosis with fibroid 2014 (3-4 in size, growing [address] showed fibroid now 8-9 in size, she has been having some cramping, passing large clots, Last normal period was 3 months ago (December-January) since been irregular. Last pap 2019 , bleeding today has slow down mostly dark brown discharge The patient is a 49-year-old female presenting with uterine leiomyoma and associated heavy menstrual bleeding. She has been aware of her fibroids for about ten years, initially asymptomatic and small, but recently causing significant bleeding for two months, with large clots and potential need for emergency care. Six months prior to this she had no bleeding. The patient has a history of ulcerative colitis, managed with medications including steroids, and has experienced anemia due to both ulcerative colitis and recent heavy menstrual bleeding, requiring past iron infusions and blood transfusions. She states that there was a plan for hysterectomy during the COVID times but it was cancelled and never rescheduled. Susan Benitez MD [address] [facility], [place], [address], [facility] [employer] [facility] 04/03/2025 17:16:57 04/04/20 25 text/htm l Abnormal BleedingReported by PatientHPIFor quality, patient reportsirregularandheavybut reportspassing clots. For associated symptoms, patient reportspelvic painandbloating. For onset/timing, patient reportsirregular. For severity, patient reportsinterferes with daily activities. For context, patient reportshistory of fibroids. Susan Benitez MD [address] [facility], [place], [address], [facility] [employer] IV 04/05/2025 10:58:27 OBGyn Episode Ob Episode Information Episode Created Date Number of Fetuses Patient Bloodtype Patient rh Status Prepregnancy Weight lbs Domestic Partner Domestic Partner Phone Father Name Fiscal Services Manager Status 04/03/20 25 1 CLOSED Fetus Data First Name Last Name Admitted to NICU Weight (g) Sex Living Outcome Pediatric Complications Fetus ID Race Codes Race Delivery Type 4110.45 0704 M Full Term [id number] Primary Spencer Calculation Initial Spencer Date Initial Exam Date Initial Exam Provider Initial Ultrasound Date Last Menstrual Period Date Ultra Sound Weeks Gestation 0 Eighteen To Twenty Week Spencer Update Ultra Sound Date Fundal Height At Umbil Quickening Date Ultra Sound Latest Weeks Gestation Final Spencer Confirmed By Final Spencer Confirmed Date Final Spencer Date Ultra Sound Latest Days Gestation 0 0 Menstrual History Last Menstrual Date Menses Monthly On Bcp Conception Prior Menses Frequency Hcg Plus Date Menarche Onset Age Delivery Information Delivery Date Delivery Type Labor Anesthesia Weeks Gestation Incision Type Labor Labor Length Hrs Delivered By Post Complications Tubal Sterilization Discharge Date Comments 8 40 Discharge Information Feeding Method Contraceptive Method Maternal HG B and HCT Levels
--- NOTE | 2025-08-01 18:14 | ED.CHESTPAIN ---
HPI - Chest Pain General Chief Complaint: Chest Pain Stated Complaint: CP Time Seen by Provider: 08/01/25 17:05 History of Present Illness HPI narrative: 50-year-old female presenting with concerns for chest pain that began last night. Patient states the chest pain is centrally located and radiates to her back and down her left arm. She also does having intermittent numbness/tingling in the left arm. Denies shortness of breath, dizziness, nausea/vomiting/diarrhea, or fever/chills. Reports a history of paroxysmal SVT. Related Data Allergies Allergy/AdvReac Type Severity Reaction Status Date / Time No Known Allergies Allergy Verified 08/01/25 16:47 Review of Systems Review of Systems: All systems reviewed & are unremarkable except as noted in HPI and below Exam Narrative: GENERAL: No acute distress. HEAD: Normocephalic, atraumatic. EYES: PERRLA and EOMI. ENT: Nares clear, no rhinorrhea or epistaxis. Mucous membranes moist. Oropharynx without tonsillar hypertrophy exudate or other lesions. Bilateral TMs pearly fr[place] non-bulging NECK: Supple. No adenopathy or masses. No carotid bruits or JVD CHEST: Clear to auscultation. No respiratory distress. No wheezes rales or rhonchi HEART: Regular rate and rhythm. No murmur heard. Normal peripheral pulses. ABDOMEN: Soft, nontender, nondistended, normal active bowel sounds. EXTREMITIES: Normal range of motion. No edema. SKIN: Warm, dry, no rash. NEURO: No focal deficits. Alert and oriented x3. PSYCH: Normal mood and affect Course Vital Signs Vital signs: Vital Signs Temperature 98.6 F 08/01/25 16:50 Pulse Rate 73 08/01/25 16:50 Respiratory Rate 16 08/01/25 16:50 Blood Pressure 143/79 H 08/01/25 16:50 Pulse Oximetry 96 08/01/25 16:50 Temperature 98 F 08/01/25 21:37 Pulse Rate 77 08/01/25 21:37 Respiratory Rate 18 08/01/25 21:37 Blood Pressure 135/88 08/01/25 21:37 Pulse Oximetry 99 08/01/25 21:37 Oxygen Delivery Room Air 08/01/25 17:05 [facility] Narrative Medical decision making narrative: 50-year-old female presenting with concerns for chest pain that began last night. Patient states the chest pain is centrally located and radiates to her back and down her left arm. She also does having intermittent numbness/tingling in the left arm. Denies shortness of breath, dizziness, nausea/vomiting/diarrhea, or fever/chills. Reports a history of paroxysmal SVT. Patient's EKGs and labs are without significant high risk changes. EKG w/o acute ischemic changes. Troponin negative. Cardiac risk factors reviewed. HEART score = 3. Patient is felt likely low risk for ACS and reasonable for further risk stratification testing as an outpatient. Pain was not sudden or maximal in onset without tearing or ripping quality. No other signs or symptoms to suggest aortic dissection. A low-risk Wells criteria is noted, d-dimer negative, PE is felt to be unlikely. No pneumonia seen on evaluation today. Patient is felt to be a reasonable candidate for continued evaluation as an outpatient. Given reasons to return. Differential Diagnosis Differential Diagnosis: Differential diagnostic considerations for chest pain include ACS, aortic dissection, pneumothorax, pulmonary embolus, rayshawn/pericarditis, angina, STEMI, esophageal abnormality, GI etiology, pneumonia, rib fracture, biliary colic, atypical/non-cardiac (MSK, etc). Lab Data 08/01/25 17:27 08/01/25 17:27 Labs: Lab Results 08/01/25 08/01/25 Range/Units 17:27 20:00 WBC 7.7 (4.5-10.0) K/mm3 RBC 4.37 (4.2-5.4) M/mm3 Hgb 12.7 (12.0-15.0) g/dL Hct 38.0 (37.0-47.0) % MCV 87.0 (80-100) fl MCH 29.1 (26-34) pg MCHC 33.4 (32-36) g/dl RDW 13.7 (11.5-14.5) % Plt Count 396 H (150-375) k/mm3 MPV 9.3 (7.4-10.4) fl Immature Gran % (Auto) 2.0 H (0-0.5) % Neut % (Auto) 65.7 (45.5-73.1) % Lymph % (Auto) 20.9 (18.3-44.2) % Fleming % (Auto) 8.5 (2.6-8.5) % Eos % (Auto) 2.1 (0-4.4) % Baso % (Auto) 0.8 (0.2-1.2) % Lymph # (Auto) 1.60 (0.9-3.2) K/mm3 Fleming # (Auto) 0.7 H (0.1-0.6) K/mm3 Eos # (Auto) 0.2 (0-0.3) K/mm3 Baso # (Auto) 0.1 (0.0-0.1) K/mm3 Abs Immat Gran (auto) 0.15 H (0.00-0.031) K/mm3 Absolute Neuts (auto) 5.0 (1.3-6.7) K/mm3 Absolute Nucleated RBC 0.000 (0.0-0.012) K/mm3 Nucleated RBC % 0.0 (0.0-0.2) % PT 13.1 (11.1-14.7) Seconds INR 1.0 APTT 26.8 (22.3-36.8) Seconds D-Dimer 0.36 (<0.48) ug/mL Sodium 138 (137-145) mmol/L Potassium 4.0 (3.4-5.0) mmol/L Chloride 103 (98-107) mmol/L Carbon Dioxide 27 (22-30) mmol/L Anion Gap 8 (4-12) mmol/L BUN 14 (7-17) mg/dL Creatinine 0.84 (0.7-1.0) mg/dL Estim Creat Clear Calc 67 ml/min Estimated GFR > 60 (59 - ) Glucose 92 (65-110) mg/dL Calcium 9.9 (8.4-10.2) mg/dL Total Bilirubin 0.5 (0.2-1.3) mg/dL AST 37 H (14-36) U/L ALT 22 (6-35) U/L Alkaline Phosphatase 90 (38-126) U/L Troponin I < 0.012 < 0.012 (0.000-0.034) ng/mL Total Protein 8.4 H (6.3-8.2) g/dL Albumin 4.7 (3.5-5.1) g/dL Lipase 52 (23-300) U/L Imaging Data Attestation: I personally reviewed and interpreted this imaging study as follows: Radiologist's impression: ITS Impressions Chest X-Ray 08/01/25 17:29 Impression: No acute cardiopulmonary abnormality. ECG Data EKG #1: ECG completion date: 08/01/25 ECG completion time: 17:06 normal rate, sinus rhythm and no acute changes EKG #2: ECG completion date: 08/01/25 ECG completion time: 19:51 normal rate, sinus rhythm and no acute changes Discharge Plan Discharge Clinical Impression: Chest pain Patient Disposition: Home Condition: Stable Instructions: Chest Pain (ED) Additional Instructions: Return to the emergency department if you experience fever, chest pain, shortness of breath, abdominal pain with nausea and vomiting, weakness, numbness/tingling, or any other symptoms that are concerning to you. Follow up with primary care doctor. Patient Language: Turkmen Follow-up/Referrals: Hernan,Ramone Bagley MD [Primary Care Provider, Unknown] Quality HEART score for chest pain patients History: slightly suspicious ECG: normal Age: > 45 and < 65 years Risk factors: > or = to 3 risk factors of atherosclerotic disease Troponin: < or = to 1x normal limit Heart score: 3
[2025-08-01] MEDS: BELLADONNA ALK/PHENOB ELIX 10 ML, MAG HYDROX/ALUMINUM HYD/SIMETH 30 ML, LIDOCAINE 2% VI... PO (18:50)
--- NOTE | 2025-08-01 20:27 | ECG_ITS ---
Test Date: 2025-08-01 19:51:57 Measurements Intervals [place] Rate: 68 P: 37 MS: 144 QRS: 10 QRSD: 110 T: 38 QT: 391 QTc: 417 Interpretive Statements SINUS RHYTHM INCOMPLETE RIGHT BUNDLE BRANCH BLOCK BORDERLINE ECG Compared to ECG 08/01/2025 17:06:20 Sinus arrhythmia no longer present Electronically Signed On 08-01-2025 20:44:49 [employer] SPECIAL EDUCATOR by Osmany Rojas D.O.
[2025-08-01 20:28] LABS: Troponin I < 0.012 ng/mL (0.000-0.034)
[2025-08-01 21:37] VITALS: BP 135/88; PULSE 77; RESP 18; TEMP 36.6; O2SAT 99
== END 2025-08-01 21:38 | disposition home or self-care (01) ==
PROVIDERS: Emergency Medicine; PCP Family Medicine
DX: R07.9 Chest pain, unspecified (principal); I45.10 Unspecified right bundle-branch block; R94.31 Abnormal electrocardiogram [ECG] [EKG]
CPT/HCPCS: 36415; 71046; 80053; 83690; 84484; 85025; 85380; 85610; 85730; 93005; 99284; A9270